=== PATIENT | female | born 1955 ===

== ENCOUNTER 2024-12-29 09:27 | Outpatient (CLI) | payer OTHER, SELFPAY ==
--- OUTSIDE RECORDS SUMMARY | 2024-12-29 09:33 | XMS_ITS | Encounter Summary ---
Author Organization [facility] Address [address] [place] [address] Phone Care Team Providers Care Poultry Packer Name Role Phone Lena Negro Primary Care Provider Encounter Details Date Type Department Care Team (Late st Contact Info) Description 01/23/2020 Telephone [facility] [address] [address] Stevenson Hollins MD [address] [address] Social History Tobacco Use Types Packs/Day Years Used Date Smoking Tobacco: Never Smokeless Tobacco: Never Alcohol Use Standard Drinks/Week Comments Never 0 (1 standard drink = 0.6 oz pur e alcohol) AUDIT-C Answer Date Recorded Q1: How often do you have a drink containing alc ohol? Never 01/19/2020 Average Number of Drinks Not on file 020 Frequency of Binge Drinking Not on file 12/26 PHQ-2 Answer Date Recorded PHQ-2 Score 0 01/19/2020 Comments Unknown Sex and Gender Information Value Date Recorded Sex Assigned at Not on file Legal Sex Female 8:22 AM CDT Gender Identity Not on file Sexual Orientation Not on file COVID-19 Exposure Response Date Recorded In the last month, have you been in contact with someone who was confirmed or suspected to have Coronavirus / COVID-19? No / Unsure 01/19/2020 10:31 AM CDT documented as of this encounter Miscellaneous Notes * Telephone Encounter - Anyi Shaver - 01/23/2020 1:24 PM CDT TRIED CALLING PT TO RESSCHEDULE 02/08 APPT NO ANSWER AND NO VM SET UP. WILL TRY AGAIN LATER. documented in this encounter Plan of Treatment Not on file documented as of this encounter Visit Diagnoses Not on filedocumented in this encounter Additional Health Concerns Assessment Noted Time PHQ-9 Depression Total Score: 0 01/19/20 10:48 AM CDT documented as of this encounter Care Teams Poultry Packer Relationship Specialty Start Date End Date Lena Negro PA [address] [facility] [address] PCP - General Physician Banquet Line Cook 01/11/20 documented as of this encounter
--- OUTSIDE RECORDS SUMMARY | 2024-12-29 09:33 | XMS_ITS | Encounter Summary ---
Author Organization [facility] Address [address] [place] [address] Phone Care Team Providers Care Sintering Press Operator Name Role Phone Lena Negro Primary Care Provider [phone] Encounter Details Date Type Department Care Team (Late st Contact Info) Description 05/09/2020 Telephone [facility] [address] [phone] Stevenson Hollins MD [address] [address] Social History Tobacco Use Types [...] on file 12/26 PHQ-2 Answer Date Recorded Total Score - Questions 1-9 0 03/26 Comments No Sex and Gender Information Value Date Recorded Sex Assigned at Not on file Legal Sex Female 8:22 AM CDT Gender Identity Not on file Sexual Orientation Not on file COVID-19 Exposure Response Date Recorded In the last month, have you been in contact with someone who was confirmed or suspected to have Coronavirus / COVID-19? No / Unsure 04/12/2020 10:01 AM SCUBA DIVER documented as of this encounter Miscellaneous Notes * Telephone Encounter - Wanda Taylor - 05/09/2020 4:01 PM CST PATIENT WAS A NO SHOW FOR 05/09/2020, CALLED PATIENT TWICE TO SEE IF WANTED TO RESCHEDULE, LINE WAS BUSY, WILL MAIL LETTER. A DIVER documented in this encounter Plan of Treatment Not on file documented as of this encounter Visit Diagnoses Not on filedocumented in this encounter Additional Health Concerns Assessment Noted Time PHQ-9 Depression Total Score: 0 04/12/20 10:09 AM SCUBA DIVER documented as of this encounter Care Teams Sintering Press Operator Relationship Specialty Start Date End Date Lena Negro PA [address] [facility] [address] PCP - General Physician Special Events Manager 01/11/20 documented as of this encounter
--- OUTSIDE RECORDS SUMMARY | 2024-12-29 09:33 | XMS_ITS | Clinical Summary ---
Author Organization [facility] Address [address], [facility] [address] [place] [address] Phone Care Team Providers Care Chair Installer Name Role Phone Lena Negro Primary Care Provider [phone] Allergies No known active allergies Medications Aspirin Low Dose 81 MG Tablet Delayed Response TK 1 T PO QD 01/11/2020 Active atorvastatin (LIPITOR) 80 MG Tablet 05/01/2019 Active ferrous sulfate 325 (65 Fe) MG Tablet Take 325 mg by mouth. Active furosemide (LASIX) 40 MG Tablet 05/01/2019 Active hydrALAZINE HCl 100 MG Tablet TK 1 T PO TID UTD 03/31/2019 Active isosorbide mononitrate (IMDUR) 30 MG TABLET SR 24 HR TK 1 T PO QD 04/16/2019 Active lisinopril (PRINIVIL, ZESTRIL) 40 MG Tablet 05/02/2019 Active MAGnesium-Oxide 400 (241.3 Mg) MG Tablet TK 1 T PO QD 12/18/2019 Active metOLazone (ZAROXOLYN) 2.5 MG Tablet Take 2.5 mg by mouth. 02/28/2019 Active phenytoin (DILANTIN) 100 MG ER capsule TK 2 CS PO BID 03/31/2019 Active tolterodine (DETROL LA) 4 MG CAPSULE SR 24 HR TK 1 C PO QD 04/21/2019 Active folic acid (FOLVITE) 1 MG Tablet Take 1 Tab by mouth daily. 30 Tab 6 02/16/2020 Active potassium chloride SA (KLORCON M) 20 MEQ Tablet Controlled Release TK 1 T PO QD 03/06/2020 Active metoprolol succinate (TOPROL-XL) 200 MG TABLET SR 24 HR TK 1 T PO QD 03/07/2020 Active ergocalciferol (VITAMIN D) 51564 UNIT Capsule Take 50,000 Units by mouth. Active Active Problems Problem Noted Date Diagnosed Date Anemia of unknown etiology 01/19/2020 Social History Tobacco Use Types Packs/Day Years [...] on file Sexual Orientation Not on file Last Filed Vital Signs Vital Sign Reading Time Taken Comments Blood Pressure 144/88 04/12/2020 10:05 AM EVENT SPECIALIST Pulse 68 04/12/2020 10:05 AM EVENT SPECIALIST Temperature 36.1 C (97 F) 04/12/2020 10:05 AM EVENT SPECIALIST Respiratory Rate 16 04/12/2020 10:05 AM EVENT SPECIALIST Oxygen Saturation 99% 04/12/2020 10:05 AM EVENT SPECIALIST Inhaled Oxygen Concentration - - Weight 73.5 kg (162 lb) 04/12/2020 10:05 AM EVENT SPECIALIST Height 149.9 cm (4' 11) 04/12/2020 10:05 AM EVENT SPECIALIST Body Mass Index 32.72 04/12/2020 10:05 AM EVENT SPECIALIST Plan of Treatment Health Maintenance Due Date Last Done Comments Hepatitis C Virus (HCV) Screening 1955 TdaP Immunization 1955 Cologuard 09/24/2000 Colonoscopy 09/24/2000 Colorectal Cancer Screening 09/24/2000 Immunochemical Fecal Occult Blood 09/24/2000 Pneumococcal Immunization (5 0+ years) (1 of 1 - PCV) 09/24/2005 Zoster Immunization (1 of 2) 09/24/2005 Influenza Immunization (#1) 2024 SARS-COV-2 Immunization (1 - 2023-25 season) 2024 Respiratory Syncytial Virus (RSV) Immunization (Adult) (1 - 1-dose 75+ series) 09/24/2030 Hepatitis B Immunization Aged Out No longer eligible based on patient's age to complete this topic Human Papillomavirus (HPV) Immunization Aged Out No longer eligible b ased on patient's age to complete this topic Meningococcal Immunization (ACWY) Aged Out No longer eligible based on patient's age to complete this topic Rotavirus Immunization Aged Out No lo nger eligible based on patient's age to complete this topic Insurance MEDICAID [employer] Care Teams Chair Installer Relationship Specialty Start Date End Date Lena Negro PA [address] [place] [address] PCP - General Physician Cash Posting Clerk 01/11/20
--- OUTSIDE RECORDS SUMMARY | 2024-12-29 09:33 | XMS_ITS | Encounter Summary ---
Author Organization [facility] Address [address] [place] [address] Phone Care Team Providers Care Bid Analyst Name Role Phone Lena Negro Primary Care Provider [phone] Reason for Visit * Reason Comments Medication Refill Encounter Details Date Type Department Care Team (Late st Contact Info) Description 02/05/2020 Refill [facility] [address] [phone] Stevenson Hollins MD [address] [facility] [place] [address] [address] Medication Refill Social History Tobacco Use Types Packs/Day Years [...] encounter Miscellaneous Notes * Telephone Encounter - Renée Lewis RN - 02/05/2020 3:11 PM CDT Please refill if appropriate. documented in this encounter Plan of Treatment Not on file documented as of this encounter Visit Diagnoses Not on filedocumented in this encounter Additional Health Concerns Assessment Noted Time PHQ-9 Depression Total Score: 0 01/19/20 20 10:48 AM CDT documented as of this encounter Care Teams Bid Analyst Relationship Specialty Start Date End Date Lena Negro PA [address] [employer] [facility] [employer] [place] [address] PCP - General Physician Retrieval Specialist 01/11/20 documented as of this encounter
--- OUTSIDE RECORDS SUMMARY | 2024-12-29 09:33 | XMS_ITS | Encounter Summary ---
Author Organization [facility] Address [address] [place] [address] Phone Care Team Providers Care Salary And Wage Administrator Name Role Phone Lena Negro Primary Care Provider [phone] Encounter Details Date Type Department Care Team (Late st Contact Info) Description 02/15/2020 Telephone [facility] [address] [phone] Stevenson Hollins MD [address] [address] Social History Tobacco Use Types [...] have Coronavirus / COVID-19? No / Unsure 02/16/2020 10:29 AM CDT documented as of this encounter Miscellaneous Notes * Telephone Encounter - Rica Angulo - 02/15/2020 11:17 AM CDT Patient no showed her appointment. I called and spoke with Ms. Walls, she thought her appointmentwas for tomorrow so I rescheduled her for tomorrow 02/15 you had an opening at 10:30. documented in this encounter Plan of Treatment Not on file documented as of this encounter Visit Diagnoses Not on filedocumented in this encounter Additional Health Concerns Assessment Noted Time PHQ-9 Depression Total Score: 0 01/19/20 10:48 AM CDT documented as of this encounter Care Teams Salary And Wage Administrator Relationship Specialty Start Date End Date Lena Negro PA [address] [facility] [address] [facility] [place] [address] PCP - General Physician [employer] 01/11/20 documented as of this encounter
--- OUTSIDE RECORDS SUMMARY | 2024-12-29 09:34 | XMS_ITS | Clinical Summary ---
Author Organization [facility] Address [address] [place] [id number] Care Team Providers Care Yarn Wrapper Name Role Phone Ernesto Awan MD Unavailable [phone] Olman MATT MD, Robert Barnes Unavailable [phone] Lena Negro Primary Care Provider [phone] Allergies Active Allergy Reactions Criticality Noted Date Comments Lisinopril Angioedema High 12/03/2024 Medications phenytoin ER (DILANTIN) 100 mg ER capsule Take 2 capsules (200 mg total) by mouth 2 (two) times a day 03/31/20 19 Active hydrALAZINE (APRESOLINE) 100 mg tablet Take 1 tablet (100 mg total) by mouth 3 (three) times a day 03/31/20 19 Active ergocalciferol (VITAMIN D) 50,000 unit capsule Take 1 capsule (50,000 Units total) by mouth once a week Mondays04/20/20 19 Active POTASSIUM CHLORIDE ER 20 mEq CR tablet Take 1 tablet (20 mEq total) by mouth daily 04/20/20 19 Active atorvastatin (LIPITOR) 80 mg tablet Take 1 tablet (80 mg total) by mouth daily 05/01/19 20 Active magnesium oxide (MAG-OX) 400 mg (241.3 mg elemental magnesium) tablet Take 1 tablet (400 mg total) by mouth daily 05/01/19 20 Active ferrous fumarate 325 mg (106 mg iron) tablet Take 2 tablets (650 mg total) by mouth daily with breakfast Active cetirizine (ZyrTEC) 10 mg tablet Take 1 tablet (10 mg total) by mouth daily as needed for rhinitis or allergies Active Farxiga 10 mg tablet Take 1 tablet (10 mg total) by mouth daily Active docusate sodium (COLACE) 100 mg capsule Take 1 capsule (100 mg total) by mouth 3 (three) times a day as needed for constipation Active ezetimibe (ZETIA) 10 mg tablet Take 1 tablet (10 mg total) by mouth daily Active terazosin (HYTRIN) 5 mg capsule Take 1 capsule (5 mg total) by mouth daily 04/13/20 24 Active furosemide (LASIX) 40 mg tablet Take 1 tablet (40 mg total) by mouth 2 (two) times a day 60 tablet 05/31/[address] (PROTONIX) 40 mg EC tabletIndicati ons:GI Bleed Take 1 tablet (40 mg total) by mouth 2 (two) times a day 60 tablet 4 10/04/19 25 Active sucralfate (CARAFATE) suspension 1 gram/10 mL Take 10 mL (1 g total) by mouth 4 (four) times a day (with meals and nightly) 1200 mL 2 10/04/19 25 Active aspirin 81 mg enteric coated tablet Take 1 tablet (81 mg total) by mouth daily 10/08/19 25 Active oxyBUTYnin (DITROPAN) 5 mg tablet Take 1 tablet (5 mg total) by mouth 2 (two) times a day Active carvediloL (COREG) 3.125 mg tablet Take 1 tablet (3.125 mg total) by mouth 2 (two) times a day with meals 60 tablet 12/07/19 25 2024 Active isosorbide mononitrate ER (IMDUR) 60 mg 24 hr tablet Take 2 tablets (120 mg total) by mouth daily 60 tablet 12/07/19 25 Active tolterodine LA (DETROL LA) 4 mg 24 hr capsule TK 1 C PO QD 04/21/20 19 2024 Discontinued polysaccharide iron complex (NU-IRON) 150 mg iron capsule Take 1 capsule (150 mg total) by mouth 2 (two) times a day 05/23/19 25 2024 Discontinued NIFEdipine CC 90 mg 24 hr tablet Take 1 tablet (90 mg total) by mouth daily 2024 Discontinued(S top Taking at Discharge) isosorbide mononitrate ER (IMDUR) 60 mg 24 hr tablet Take 1 tablet (60 mg total) by mouth daily 03/29/20 24 2024 Discontinued metOLazone (ZAROXOLYN) 2.5 mg tablet Take 1 tablet (2.5 mg total) by mouth 3 (three) times a week 30 tablet 1 05/31/19 25 2024 Discontinued carvediloL (COREG) 6.25 mg tablet Take 1 tablet (6.25 mg total) by mouth 2 (two) times a day with meals 60 tablet 11 05/31/19 25 2024 Discontinued(S top Taking at Discharge) sacubitriL-edmond sartan (ENTRESTO) 24-26 mg tabletIndicati ons:chronic heart failure Take 1 tablet by mouth 2 (two) times a day 60 tablet 3 05/31/19 25 2024 Discontinued(S top Taking at Discharge) mirabegron ER (MYRBETRIQ) 25 mg tablet extended release 24 hr Take 1 tablet (25 mg total) by mouth 2024 Discontinued Active Problems Problem Noted Date Diagnosed Date Acute renal failure superimp osed on stage 4 chronic kidney disease 12/04/2024 Other cirrhosis of liver 12/04/2024 Chronic heart failure with p reserved ejection fraction (HFpEF) 12/04/2024 Coronary artery disease invo lving [place] coronary artery of [place] heart without angina pectoris 12/04/2024 Acute on chronic congestive heart failure, unspecified heart failure type 12/03/2024 Gastritis 12/03/2024 Anasarca 12/03/2024 Ascites 12/03/2024 Pulmonary nodule, right 12/03/2024 Abnormal finding on GI tract imaging 10/03/2024 Assessment & Plan (11/30/2024 4:38 PM CDT): CT scan was completed on 10/02/2024 that showed subtle hepatic surface nodularity. Ultrasound was then completed that showed liver may be slightly enlarged. No definite surface nodularity was seen. Most recent liver enzymes showed ALT 20, AST 18, alk phos 158. -Educated on importance of healthy diet and lifestyle, low-fat diet -Discussed possible FibroScan, Black stool 10/03/2024 Generalized abdominal pain 10/02/2024 Acute on chronic combined sy stolic and diastolic congestive heart failure 05/30/2024 Stage 4 chronic kidney disease 05/30/2024 Congestive heart failure, un specified HF chronicity, unspecified heart failure type 05/28/2024 Proteinuria, unspecified 04/02/2023 Other proteinuria 03/31/2023 Seizure disorder 08/31/2022 08/31/2022 Pulmonary hypertension 08/31/2022 Obesity 08/31/2022 08/31/2022 Left ventricular hypertrophy 08/31/202211/2022 Hyperlipidemia 08/31/2022 08/31/2022 Edema of lower extremity 08/31/2022 023 Atrial fibrillation 08/31/2022 08/31/2022 Allergic rhinitis 08/31/2022 08/31/2022 Type 2 diabetes mellitus 06/20/2022 023 Proteinuria 06/20/2022 08/31/2022 Acute on chronic anemia 01/19/2020 09/01/19 23 Assessment & Plan (11/30/2024 4:38 PM CDT): Presented to the ED on 10/02/2024 with complaints of abdominal pain as well as melena. Hemoglobin was noted 6.9. She received one units of packed red blood cells and hemoglobin increased to 8.6. An EGD that was performed on 10/[address] Avina that showed normal esophagus, gastritis, normal duodenum. She was then started on 40 mg pantoprazole b.i.d. as well as Carafate. She currently has no complaints of abdominal pain. She states that she currently follows with Dr. Fitzpatrick and has an appointment scheduled with him next week. Repeat blood work was ordered by primary care physician which she has not had completed at this time. -States that she would like to follow up with her current GI provider for additional workup -Discussed possible capsule study for further investigation Vitamin D deficiency 06/06/2019 08/31/2022 Iron deficiency anemia 04/24/2019 Swelling 02/04/2018 08/31/2022 Pain in both lower extremities 02/04/2018 0 08/31/2022 Gout 02/04/2018 08/31/2022 Dyspnea on exertion 02/04/2018 08/31/2022 Chest pain 02/04/2018 08/31/2022 Primary hypertension 12/17/2016 08/31/2022 Coronary arteriosclerosis 01/24/20072022 Resolved Problems Problem Noted Date Diagnosed Date Resolved Date Dark stools 10/03/2024 11/30/2024 Encounters Date Type Department Care Team Description 12/28/19 25 [facility] Subsequent Outreach [facility] [address] [place] [phone] Roseanna Toney 12/21/19 25 [facility] Subsequent Outreach [facility] [address] [place] [phone] Mau Chavez, RN 12/15/19 25 T[facility] Subsequent Outreach [facility] [address] [place] [phone] Linda Graves, [facility] 12/09/19 25 Home Care Visit [facility] [address] [place] [address] [address] [place] [address] Kathy Peters, PT PT NON ADMIT 12/08/19 25 TCC Initial Outreach [facility] [address] [place] [phone] Janice Santoro, [facility] 12/08/19 25 Telephone [facility] [address] [place] [phone] Albert Carmona, LUCRECIA 12/05/19 25 TCC Initial Eligibility Review [facility] [address] [place] [phone] Mau Chavez, RN 12/04/19 25 1:54 PM CDT - 12/07/19 25 5:30 PM CDT Hospital Encounter [address] [address] Milo Trujillo MD Chapagain, Akhil, MD Chiravuri, Shalini, MD Fasick, Victoria Rose, DO Acute on chronic congestive heart failure, unspecified heart failure type (HCC) (Primary Dx); T wave inversion in EKG; Anasarca; Acute renal failure superimposed on stage 4 chronic kidney disease, unspecified acute renal failure type (HCC); Other cirrhosis of liver; Chronic heart failure with preserved ejection fraction (HFpEF); Coronary artery disease involving [place] coronary artery of [place] heart without angina pectoris; Physical debility Discharge Disposition: Discharge to home, home health skilled care 11/30/19 10:10 AM CDT Lab [facility] [address] [place] [phone] 11/30/19 9:55 AM CDT Lab [facility] [address] [place] [phone] 11/30/19 9:40 AM CDT Lab [facility] [address] [place] [phone] 11/30/19 9:00 AM CDT Office Visit [facility] Gastroenterology at [address] [phone] Selene Toney NP Anemia of unknown etiology (Primary Dx); Abnormal finding on GI tract imaging 10/04/19 1:30 PM CDT - 10/04/19 2:00 PM CDT Surgery [facility] [address] [place] [phone] Nas Avina MD ESOPHAGOGASTRODUODENOSCOPY 10/04/19 1:02 PM CDT Anesthesia Event [facility] [address] [place] [phone] Mian Vasquez MD 10/03/19 3:44 PM CDT - 10/04/19 6:07 PM CDT Hospital Encounter [facility] [address] [place] [phone] Víctor Jamison MD Paruchuri, Tharun, MD Potluri, Sobhana Krishna, MD Abdominal pain (Primary Dx); Normocytic anemia; Stage 4 chronic kidney disease (HCC); Black stool; Abnormal finding on GI tract imaging; Dark stools Discharge Disposition: Discharge to home or self care from Last 3 Months Surgical History Surgery Date Site/Laterality Comments HYSTERECTOMY COLONOSCOPY 04/26/1997 - 04/25/1998 Medical History Medical History Date Comments Hypertension Arthritis Heart failure Seizure disorder (HCC) Gastritis Hypercholesterolemia Overactive bladder Family History Relation Name Status Comments Daughter 1 Daughter 2 Alive Daughter 3 Alive Social History Tobacco Use Types Packs/Day Years Used Date Smoking Tobacco: Never Smokeless Tobacco: Never Alcohol Use Standard Drinks/Week Comments Not Currently 0 (1 standard drink = 0.6 oz pur e alcohol) Social Connection and Isolation Panel Answer Date Recorded In a typical week, how many times do you talk on the phone with family, friends, or neighbors? Three times a week 10/03/2024 How often do you get togethe r with friends or relatives? Three times a week 10/03/2024 How often do you attend chur ch or roman catholic services? More than 4 times per year 10/03/2024 Do you belong to any clubs o r organizations such as hoahaoism groups, unions, fraternal or athletic groups, or school groups? No 10/03/2024 How often do you attend meet ings of the clubs or organizations you belong to? Never 10/03/2024 Are you , , di vorced, , never , or living with a partner? 10/03/2024 AUDIT-C Answer Date Recorded Q1: How often do you have a drink containing alcohol? Never 10/03/2024 Q2: How many drinks containi ng alcohol do you have on a typical day when you are drinking? Patient does not drink Q3: How often do you have si x or more drinks on one occasion? Never 10/03/2024 Overall Financial Resource Strain (CARDIA) Answe r Date Recorded How hard is it for you to pa y for the very basics like food, housing, medical care, and heating? Not very hard 10/03/2024 PRAPARE - Transportation Answer Date Re corded In the past 12 months, has l ack of transportation kept you from medical appointments or from getting medications? No 09/24 In the past 12 months, has l ack of transportation kept you from meetings, work, or from getting things needed for daily living? No 10/03/2024 Housing Stability Vital Sign Answer Hunter e Recorded In the last 12 months, was t here a time when you were not able to pay the mortgage or rent on time? No 10/03/2024 In the past 12 months, how m any times have you moved where you were living? 0 10/03/2024 At any time in the past 12 m [facility], were you homeless or living in a senior living (including now)? No 10/03/2024 Social Connection and Isolation Panel Answer Date Recorded In a typical week, how many times do you talk on the phone with family, friends, or neighbors? Three times a week 12/04/2024 How often do you get togethe r with friends or relatives? Three times a week 12/04/2024 How often do you attend chur ch or roman catholic services? More than 4 times per year 12/04/2024 Do you belong to any clubs o r organizations such as hoahaoism groups, unions, fraternal or athletic groups, or school groups? No 12/04/2024 How often do you attend meet ings of the clubs or organizations you belong to? Never 12/04/2024 Are you , , di vorced, , never , or living with a partner? 12/04/2024 Overall Financial Resource Strain (CARDIA) Answe r Date Recorded How hard is it for you to pa y for the very basics like food, housing, medical care, and heating? Somewhat hard 12/04/2024 Hunger Vital Sign Answer Date Recorded Within the past 12 months, y ou worried that your food would run out before you got the money to buy more. Never true 12/05/19 25 Within the past 12 months, t he food you bought just didn't last and you didn't have money to get more. Never true 12/04/2024 PRAPARE - Transportation Answer Date Re corded In the past 12 months, has l ack of transportation kept you from medical appointments or from getting medications? No 11/24 In the past 12 months, has l ack of transportation kept you from meetings, work, or from getting things needed for daily living? No 12/04/2024 Housing Stability Vital Sign Answer Hunter e Recorded In the last 12 months, was t here a time when you were not able to pay the mortgage or rent on time? No 12/04/2024 In the past 12 months, how m any times have you moved where you were living? 0 12/04/2024 At any time in the past 12 m [facility], were you homeless or living in a senior living (including now)? No 12/04/2024 [facility] Utilities Answer Date Recorded In the past 12 months has [employer], gas, oil, or water [employer] threatened to shut off services in your home? No 12/04/2024 Personal Safety Answer Date Recorded Have you ever been in or are you currently in a harmful physical or emotional relationship or is someone making you feel afraid or unsafe? 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 Gender Identity Not on file Sexual Orientation Not on file Obstetrics History Para Term AB IAB SAB Ectopic Multiple Livin g Live Births 4 3 3 Date Outcome GA Total Labor Labor/2nd/3rd Weight Sex Type Anes PTL Marily A1 A5 Name Clin Term Term Term Last Filed Vital Signs Vital Sign Reading Time Taken Comments Blood Pressure 187/65 12/06/2024 3:57 PM CDT Pulse 51 12/06/2024 3:57 PM CDT Temperature 36.6 C (97.9 F) 12/06/2024 3:57 PM CDT Respiratory Rate 18 12/06/2024 3:57 PM CDT Oxygen Saturation 100% 12/06/2024 3:55 PM CDT Inhaled Oxygen Concentration - - Weight 66.8 kg (147 lb 4.8 oz) 12/06/2024 6:00 A M CDT Height 154.9 cm (5' 1) 12/03/2024 7:44 PM CDT Body Mass Index 27.83 12/03/2024 7:44 PM CDT Plan of Treatment Health Maintenance Due Date Last Done Comments Albumin Creatinine Ratio, Urine 1955 Colon Cancer Screening-Colonoscopy 1955 Depression Screening 1955 Hepatitis C Screening 1955 Osteoporosis Screening-Bone Density Scan 1955 Dilated Eye Exam 1955 Foot Exam 1955 DTaP/Tdap/Td Vaccine (1 - Tdap) 09/24/1966 Hepatitis B Screening 09/24/1973 Pneumococcal vaccine 65+ (1 of 2 - PCV) 09/24/1974 Zoster Vaccine (1 of 2) 09/24/2005 Well Visit 65+ 09/24/2020 Breast Cancer Screening-Mammogram 09/02/2024 024, 06/16/2022 Influenza Vaccine (#1) 2024 Lipid Panel 03/29/2025 03/29/2024, 060 12/2022, 09/08/2022, Additional history exists Hemoglobin A1C 06/01/2025 11/29/2024, 07/2023, 10/05/2023, Additional history exists Fall Risk Assessment 12/06/2025 12/06/2024 eGFR 12/06/2025 12/06/2024, 11/24, 12/04/2024, Additional history exists Procedures Procedure Name Priority Date/Time Associated Diagnosis Comments EGFR Routine 12/06/2024 2:41 AM CDT DIFFERENTIAL AUTO Routine 12/06/2024 2:41 AM CDT MAGNESIUM Routine 12/06/2024 2:41 AM CDT CBC WITH AUTO DIFFERENTIAL Routine 12/06 2:41 AM CDT COMPREHENSIVE METABOLIC PANEL Routine 2:41 AM CDT POCT GLUCOSE DEVICE Routine 12/05/2024 8:21 PM CDT POCT GLUCOSE DEVICE Routine 12/05/2024 11:32 AM CDT POCT GLUCOSE DEVICE Routine 12/05/2024 7:52 AM CDT EGFR Routine 12/05/2024 2:24 AM CDT DIFFERENTIAL AUTO Routine 12/05/2024 2:24 AM CDT CBC WITH AUTO DIFFERENTIAL Routine 12/05 2:24 AM CDT COMPREHENSIVE METABOLIC PANEL Routine 2:24 AM CDT URINALYSIS, MICROSCOPIC ONLY Routine 02/2025 10:17 PM CDT PROTEIN / CREATININE RATIO, URINE, RANDOM Routine 12/04/2024 10:17 PM CDT URINALYSIS AND REFLEX TO MICROSCOPIC Routine 12/04/2024 10:17 PM CDT IMMUNOGLOBULIN FREE LIGHT CHAINS Routine 12/04/2024 9:02 PM CDT IMMUNOTYPING Routine 12/04/2024 9:02 PM CDT POCT GLUCOSE DEVICE Routine 12/04/2024 7:51 PM CDT POCT GLUCOSE DEVICE Routine 12/04/2024 4:16 PM CDT TRANSTHORACIC ECHO (TTE) COMPLETE W DOPPLER/CF WO CONTRAST Routine 12/04/2024 3:24 PM CDT POCT GLUCOSE DEVICE Routine 12/04/2024 11:11 AM CDT POCT GLUCOSE DEVICE Routine 12/04/2024 7:11 AM CDT TRANSFUSE RED BLOOD CELLS Timed 2024 5:06 AM CDT PREPARE RBC Timed 12/04/2024 4:08 AM CDT HEMOGLOBIN AND HEMATOCRIT STAT 2024 3:09 AM CDT PHENYTOIN LEVEL, TOTAL AND FREE Routine 12/04/2024 3:09 AM CDT EGFR Routine 12/04/2024 2:19 AM CDT DIFFERENTIAL AUTO Routine 12/04/2024 2:19 AM CDT CBC WITH AUTO DIFFERENTIAL Routine 12/04 2:19 AM CDT COMPREHENSIVE METABOLIC PANEL Routine 2:19 AM CDT CALCIUM, IONIZED Routine 12/04/2024 2:19 AM CDT CROSSMATCH Timed 12/03/2024 8:20 PM CDT ANTIBODY SCREEN Timed 12/03/2024 8:20 PM CDT ABO/RH Timed 12/03/2024 8:20 PM CDT TYPE AND SCREEN Timed 12/03/2024 8:20 PM CDT HEMOGLOBIN AND HEMATOCRIT Timed 2024 8:20 PM CDT VITAMIN D 25 HYDROXY Routine 12/03/2024 8:20 PM CDT PTH Routine 12/03/2024 8:20 PM CDT POCT GLUCOSE DEVICE Routine 12/03/2024 7:41 PM CDT PROTIME-INR STAT 12/03/2024 6:02 PM CDT APTT STAT 12/03/2024 6:02 PM CDT XR CHEST 1 VIEW ED 12/03/2024 3:33 PM CDT TROPONIN T HIGH-SENSITIVITY 2-HOUR Timed 12/03/2024 3:[address] ABDOMEN PELVIS WO CONTRAST ED 1:45 PM CDT ECG 12-LEAD STAT 12/03/2024 12:54 PM CDT URINALYSIS, MICROSCOPIC ONLY STAT 01/2025 12:50 PM CDT URINALYSIS AND REFLEX TO MICROSCOPIC AND CULTURE STAT 12/03/2024 12:50 PM CDT TROPONIN T HIGH-SENSITIVITY SERIES (BASELINE, 2HR, 4HR, 6HR) STAT 12/03/2024 12:42 PM CDT PRO B-TYPE NATRIURETIC PEPTIDE STAT 0 12/03/2024 12:42 PM CDT EGFR STAT 12/03/2024 12:42 PM CDT DIFFERENTIAL AUTO STAT 12/03/2024 12:42 PM CDT LIPASE STAT 12/03/2024 12:42 PM CDT COMPREHENSIVE METABOLIC PANEL STAT 12:42 PM CDT CBC WITH AUTO DIFFERENTIAL STAT 12/03 12:42 PM CDT EGFR Routine 11/29/2024 10:22 AM CDT DIFFERENTIAL AUTO Routine 11/29/2024 10:22 AM CDT CBC WITH AUTO DIFFERENTIAL Routine 11/29 10:22 AM CDT COMPREHENSIVE METABOLIC PANEL Routine 10:22 AM CDT EGFR Routine 11/29/2024 10:21 AM CDT TRANSFERRIN Routine 11/29/2024 10:21 AM CDT FERRITIN Routine 11/29/2024 10:21 AM CDT IRON PROFILE W/ IBC Routine 11/29/2024 10:21 AM CDT VITAMIN D 25 HYDROXY Routine 11/29/2024 10:21 AM CDT HEMOGLOBIN A1C Routine 11/29/2024 10:21 AM CDT RENAL FUNCTION PANEL Routine 11/29/2024 10:21 AM CDT URINALYSIS, MICROSCOPIC ONLY Routine 09/2024 10:18 AM CDT URINALYSIS AND REFLEX TO MICROSCOPIC Routine 11/29/2024 10:18 AM CDT PROTEIN / CREATININE RATIO, URINE, RANDOM Routine 11/29/2024 10:18 AM CDT ESOPHAGOGASTRODUODENOSCOPY 10/03 1:03 PM CDT Abdominal pain EGD 10/03/2024 12:54 PM CDT US RUQ IP Routine 10/03/2024 11:07 AM CDT EGFR Routine 10/03/2024 7:44 AM CDT DIFFERENTIAL AUTO Routine 10/03/2024 7:44 AM CDT MAGNESIUM Routine 10/03/2024 7:44 AM CDT COMPREHENSIVE METABOLIC PANEL Routine 7:44 AM CDT CBC WITH AUTO DIFFERENTIAL Routine 10/03 7:44 AM CDT TRANSFUSE RED BLOOD CELLS Timed 2024 9:10 PM CDT PREPARE RBC Timed 10/02/2024 8:03 PM CDT HEMOGLOBIN AND HEMATOCRIT STAT 2024 7:[address] ABDOMEN PELVIS WO CONTRAST ED 6:26 PM CDT SEPSIS LACTATE WITH REFLEX STAT 10/02 5:52 PM CDT VITAMIN B12 Timed 10/02/2024 3:11 PM CDT LACTATE DEHYDROGENASE Timed 10/02/2024 3:11 PM CDT IRON PROFILE W/ IBC Timed 10/02/2024 3:11 PM CDT TROPONIN T HIGH-SENSITIVITY 2-HOUR Timed 10/02/2024 3:11 PM CDT B ABO / RH CONFIRMATION TESTING STAT 10/02/2024 2:07 PM CDT URINALYSIS, MICROSCOPIC ONLY STAT 12/2024 1:27 PM CDT URINALYSIS AND REFLEX TO MICROSCOPIC AND CULTURE STAT 10/02/2024 1:27 PM CDT CROSSMATCH STAT 10/02/2024 1:21 PM CDT EGFR STAT 10/02/2024 1:21 PM CDT DIFFERENTIAL AUTO STAT 10/02/2024 1:21 PM CDT ANTIBODY SCREEN STAT 10/02/2024 1:21 PM CDT ABO/RH STAT 10/02/2024 1:21 PM CDT TYPE AND SCREEN STAT 10/02/2024 1:21 PM CDT TROPONIN T HIGH-SENSITIVITY SERIES (BASELINE, 2HR, 4HR, 6HR) STAT 10/02/2024 1:21 PM CDT LIPASE STAT 10/02/2024 1:21 PM CDT COMPREHENSIVE METABOLIC PANEL STAT 1:21 PM CDT CBC WITH AUTO DIFFERENTIAL STAT 10/02 1:21 PM CDT ECG 12-LEAD STAT 10/02/2024 1:15 PM CDT LIPID PANEL Routine 03/29/2024 12:08 PM 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 73 m2 Comment: Interpretive Data Reference Interval Normal >/= 90 mL/min/1.73m2 Mildly decreased* 60 - 89 mL/min/1.73m2 Mildly to moderately decreased 45 - 59 mL/min/1.73m2 Moderately to severely decreased 30 - 44 mL/min/1.73m2 Severely decreased 15 - 29 mL/min/1.73m2 Kidney Failure < 15 mL/min/1.73m2 *Relative to young adult level Estimated glomerular filtration rate is determined by the 2020 CKD-EPI equation recommended by the National Kid[employer] (A Unifying Approach to GFR Estimation: Recommendations of the NKF-ASK Task Force on Reassessing the Inclusion of Race in Diagnosing Kidney Disease, JASN 2020). The CKD-EPI equation should not be used for patients with unstable renal function and has not been validated in children and those over 70. Current interpretive data was last reviewed 2021. Blood 12/06/2024 2:41 AM CDT 12/06/2024 3:09 AM CDT us Radha [facility] LAB BLOOD ORDERABLES Final Re sult ITALIA HARRIS [address] [facility] [place] [address] * Differential, auto (12/06/2024 2:41 AM CDT) Neutrophil abs 2.83 1.50 - 6.50 K/cumm Imm gran abs 0.02 0.00 - 0.10 K/cumm [facility] Lymphocyte abs 0.84 0.80 - 3.30 K/cumm [facility] Monocyte abs 0.47 0.20 - 0.80 K/cumm [facility] Eosinophil abs 0.15 0.00 - 0.50 K/cumm [facility] Basophil abs 0.03 0.00 - 0.10 K/cumm [facility] Neutrophil pct 65.1 % [facility] Comment: Interpretive Data Percent cell count reference ranges are not reported, since discordance with absolute values may lead to misinterpretation of CBC data. Current Interpretive Data was last revised on 2017. Imm gran pct 0.5 % [facility] Comment: Interpretive Data Percent cell count reference ranges are not reported, since discordance with absolute values may lead to misinterpretation of CBC data. Current Interpretive Data was last revised on 2017. Lymphocyte pct 19.4 % [facility] Comment: Interpretive Data Percent cell count reference ranges are not reported, since discordance with absolute values may lead to misinterpretation of CBC data. Current Interpretive Data was last revised on 2017. Monocyte pct 10.8 % [facility] Comment: Interpretive Data Percent cell count reference ranges are not reported, since discordance with absolute values may lead to misinterpretation of CBC data. Current Interpretive Data was last revised on 2017. Eosinophil pct 3.5 % [facility] Comment: Interpretive Data Percent cell count reference ranges are not reported, since discordance with absolute values may lead to misinterpretation of CBC data. Current Interpretive Data was last revised on 2017. Basophil pct 0.7 % [facility] Comment: Interpretive Data Percent cell count reference ranges are not reported, since discordance with absolute values may lead to misinterpretation of CBC data. Current Interpretive Data was last revised on 2017. Blood 12/06/2024 2:41 AM CDT 12/06/2024 3:10 AM CDT us Radha VORA LAB BLOOD ORDERABLES Final Re sult [facility] [address] [facility] [place] [address] * (ABNORMAL) CBC with auto differential (12/06/2024 2:41 AM CDT) [facility] WBC 4.34 3.80 - 9.90 K/cumm Hgb 7.9(L) 11.9 - 15.5 g/dL [facility] Hct 23.5(L) 35.6 - 45.5 % [facility] Plt 190 150 - 400 K/cumm [facility] MPV 9.6 9.1 - 12.3 fL [facility] RBC 2.78(L) 3.90 - 5.20 M/cumm [facility] MCV 84.5 81.3 - 96.4 fL [facility] MCH 28.4 27.1 - 33.3 pg [facility] MCHC 33.6 32.3 - 35.7 g/dL [facility] RDW CV 14.6 11.1 - 14.9 % [facility] RDW SD 45.5 35.7 - 48.1 fL [facility] NRBC abs 0.00 0.00 - 0.01 K/cumm [facility] Blood 12/06/2024 2:41 AM CDT 12/06/2024 3:10 AM CDT Radha VORA LAB BLOOD ORDERABLES Final Re sult Performing Organization Address City/[facility]/ZIP Co de Phone Number [address] [place] [address] * Magnesium (12/06/2024 2:41 AM CDT) [facility] Magnesium 2.3 1.4 - 2.5 mg/dL Blood 12/06/2024 2:41 AM CDT 12/06/2024 3:09 AM CDT Catrina Melissa MD LAB BLOOD ORDERABLES Final Result Performing Organization Address City/[facility]/ZIP Co de Phone Number [address] [place] [address] * (ABNORMAL) Comprehensive metabolic panel (12/06/2024 2:41 AM CDT) [facility] Sodium 139 135 - 145 mmol/L Potassium, pl 4.4 3.3 - 4.9 mmol/L [facility] Chloride 106 97 - 110 mmol/L [facility] CO2 24 22 - 32 mmol/L [facility] Anion gap 9 2 - 15 mmol/L [facility] BUN 36(H) 6 - 25 mg/dL [facility] Creatinine 2.44(H) 0.60 - 1.10 mg/dL [facility] Glucose 94 70 - 199 mg/dL [facility] Comment: Interpretive Data Fasting glucose >/= 126 mg/dl is diagnostic for diabetes. Fasting is defined as no caloric intake for at least 8 hours. Fasting glucose between 100 mg/dl to 125 mg/dl is diagnostic of prediabetes. In a patient with classic symptoms of hyperglycemia or hyperglycemic crisis, a random glucose >/= 200 mg/dl is diagnostic for diabetes. In the absence of unequivocal hyperglycemia, results should be confirmed by repeat testing. The classification and Diagnosis of Diabetes Diabetes Care 2021; 46: S19-S40. Current interpretive data was last revised 2022. Calcium 8.1(L) 8.5 - 10.3 mg/dL [facility] Bilirubin, total 0.2 0.1 - 1.2 mg/dL [facility] Protein, pl 6.2(L) 6.5 - 8.5 g/dL [facility] Albumin 3.0(L) 3.5 - 5.0 g/dL [facility] Alk phos 148(H) 40 - 130 Units/L [facility] ALT 11 7 - 45 Units/L [facility] AST 14 10 - 45 Units/L [facility] Blood 12/06/2024 2:41 AM CDT 12/06/2024 3:09 AM CDT us Radha VORA LAB BLOOD ORDERABLES Final Re sult [facility] [address] [facility] [place] [address] * POCT glucose (12/05/2024 8:21 PM CDT) [facility] Glucose, POC 94 70 - 199 mg/dL Glucose comment 1 RN/MD Notified [facility] Blood 12/05/2024 8:21 PM CDT 12/05/2024 8:21 PM CDT Catrina Melissa MD LAB POCT ORDERABLES - DEVIC E Final Result Performing Organization Address [facility] Co de Phone Number [address] [place] [address] * POCT glucose (12/05/2024 11:32 AM CDT) Glucose, POC 113 70 - 199 mg/dL Glucose comment 1 RN/ Notified [facility] Blood 12/05/2024 11:3 2 AM CDT 12/05/2024 11:32 AM CDT Catrina Melissa MD LAB POCT ORDERABLES - DEVIC E Final Result Performing Organization Address [facility] Co de Phone Number [address] [place] [address] * POCT glucose (12/05/2024 7:52 AM CDT) Glucose, POC 91 70 - 199 mg/dL Glucose comment 1 RN/ Notified [facility] Blood 12/05/2024 7:52 AM CDT 12/05/2024 7:52 AM CDT Catrina Melissa MD LAB POCT ORDERABLES - DEVIC E Final Result Performing Organization Address City/[facility] Co de Phone Number [address] [place] [address] * (ABNORMAL) eGFR (12/05/2024 2:24 AM CDT) Pathologist [facility] eGFR 20(L) >=60 mL/min/1. 73 m2 Comment: Interpretive Data Reference Interval Normal >/= 90 mL/min/1.73m2 Mildly decreased* 60 - 89 mL/min/1.73m2 Mildly to moderately decreased 45 - 59 mL/min/1.73m2 Moderately to severely decreased 30 - 44 mL/min/1.73m2 Severely decreased 15 - 29 mL/min/1.73m2 Kidney Failure < 15 mL/min/1.73m2 *Relative to young adult level Estimated glomerular filtration rate is determined by the 2020 CKD-EPI equation recommended by the National Kid[employer] (A Unifying Approach to GFR Estimation: Recommendations of the NKF-ASK Task Force on Reassessing the Inclusion of Race in Diagnosing Kidney Disease, JASN 2020). The CKD-EPI equation should not be used for patients with unstable renal function and has not been validated in children and those over 70. Current interpretive data was last reviewed 2021. Blood 12/05/2024 2:24 AM CDT 12/05/2024 3:05 AM CDT us Radha VORA LAB BLOOD ORDERABLES Final Re sult [facility] [address] [facility] [place] [address] * (ABNORMAL) Differential, auto (12/05/2024 2:24 AM CDT) Neutrophil abs 3.48 1.50 - 6.50 K/cumm Imm gran abs 0.01 0.00 - 0.10 K/cumm [facility] Lymphocyte abs 0.74(L) 0.80 - 3.30 K/cumm [facility] Monocyte abs 0.42 0.20 - 0.80 K/cumm [facility] Eosinophil abs 0.15 0.00 - 0.50 K/cumm [facility] Basophil abs 0.02 0.00 - 0.10 K/cumm [facility] Neutrophil pct 72.2 % [facility] Comment: Interpretive Data Percent cell count reference ranges are not reported, since discordance with absolute values may lead to misinterpretation of CBC data. Current Interpretive Data was last revised on 2017. Imm gran pct 0.2 % [facility] Comment: Interpretive Data Percent cell count reference ranges are not reported, since discordance with absolute values may lead to misinterpretation of CBC data. Current Interpretive Data was last revised on 2017. Lymphocyte pct 15.4 % [facility] Comment: Interpretive Data Percent cell count reference ranges are not reported, since discordance with absolute values may lead to misinterpretation of CBC data. Current Interpretive Data was last revised on 2017. Monocyte pct 8.7 % [facility] Comment: Interpretive Data Percent cell count reference ranges are not reported, since discordance with absolute values may lead to misinterpretation of CBC data. Current Interpretive Data was last revised on 2017. Eosinophil pct 3.1 % [facility] Comment: Interpretive Data Percent cell count reference ranges are not reported, since discordance with absolute values may lead to misinterpretation of CBC data. Current Interpretive Data was last revised on 2017. Basophil pct 0.4 % [facility] Comment: Interpretive Data Percent cell count reference ranges are not reported, since discordance with absolute values may lead to misinterpretation of CBC data. Current Interpretive Data was last revised on 2017. Blood 12/05/2024 2:24 AM CDT 12/05/2024 3:10 AM CDT us Radha VORA LAB BLOOD ORDERABLES Final Re sult [facility] [address] [facility] Department [place] [address] * (ABNORMAL) CBC with auto differential (12/05/2024 2:24 AM CDT) WBC 4.82 3.80 - 9.90 K/cumm Hgb 8.0(L) 11.9 - 15.5 g/dL [facility] Hct 24.4(L) 35.6 - 45.5 % [facility] Plt 212 150 - 400 K/cumm [facility] MPV 9.7 9.1 - 12.3 fL [facility] RBC 2.87(L) 3.90 - 5.20 M/cumm [facility] MCV 85.0 81.3 - 96.4 fL [facility] MCH 27.9 27.1 - 33.3 pg [facility] MCHC 32.8 32.3 - 35.7 g/dL [facility] RDW CV 14.6 11.1 - 14.9 % [facility] RDW SD 45.1 35.7 - 48.1 fL [facility] NRBC abs 0.00 0.00 - 0.01 K/cumm [facility] Blood 12/05/2024 2:24 AM CDT 12/05/2024 3:10 AM CDT us Radha VORA LAB BLOOD ORDERABLES Final Re sult [facility] [address] [facility] [place] [address] * (ABNORMAL) Comprehensive metabolic panel (12/05/2024 2:24 AM CDT) Sodium 141 135 - 145 mmol/L Potassium, pl 4.4 3.3 - 4.9 mmol/L [facility] Chloride 107 97 - 110 mmol/L [facility] CO2 24 22 - 32 mmol/L [facility] Anion gap 10 2 - 15 mmol/L [facility] BUN 40(H) 6 - 25 mg/dL [facility] Creatinine 2.52(H) 0.60 - 1.10 mg/dL [facility] Glucose 92 70 - 199 mg/dL [facility] Comment: Interpretive Data Fasting glucose >/= 126 mg/dl is diagnostic for diabetes. Fasting is defined as no caloric intake for at least 8 hours. Fasting glucose between 100 mg/dl to 125 mg/dl is diagnostic of prediabetes. In a patient with classic symptoms of hyperglycemia or hyperglycemic crisis, a random glucose >/= 200 mg/dl is diagnostic for diabetes. In the absence of unequivocal hyperglycemia, results should be confirmed by repeat testing. The classification and Diagnosis of Diabetes Diabetes Care 202; 46: S19-S40. Current interpretive data was last revised 2022. Calcium 8.2(L) 8.5 - 10.3 mg/dL [facility] Bilirubin, total 0.2 0.1 - 1.2 mg/dL [facility] Protein, pl 6.4(L) 6.5 - 8.5 g/dL [facility] Albumin 3.3(L) 3.5 - 5.0 g/dL [facility] Alk phos 155(H) 40 - 130 Units/L [facility] ALT 13 7 - 45 Units/L [facility] AST 14 10 - 45 Units/L [facility] Blood 12/05/2024 2:24 AM CDT 12/05/2024 3:05 AM CDT Radha VORA LAB BLOOD ORDERABLES Final Re sult Performing Organization Address [facility] de Phone Number [facility] [address] [facility] [place] [address] * (ABNORMAL) Urinalysis reflex to microscopic (12/04/2024 10:17 PM CDT) Color, ur Straw Yellow Clarity, ur Clear Clear [facility] Specific gravity, ur 1.008 1.003 - 1.030 [facility] pH, urine 6.5 [facility] Comment: Interpretive Data U rine pH is affected by diet, medications, systemic acid-base disturbances, and renal tubular function. pH may affect urinary stone formation. For example, urine pH below 6.0 may help reduce the tendency for calcium phosphate stones and pH greater than 6.0 may reduce the tendency for uric acid stone formation. Source: [facility] Current Interpretive Data was last revised on 2017 Protein, ur ql 1+(A) Negative [facility] Glucose, ur ql Negative Negative [facility] Ketones, ur Negative Negative [facility] Bilirubin, ur Negative Negative [facility] Blood, ur Negative Negative [facility] Urobilinogen, ur <2.0 <2.0 mg/dL [facility] Nitrite, ur Negative Negative [facility] Leukocyte esterase, ur Negative Negative [facility] UA reflex comment Reflex to microscopic UA will be performed. [facility] Urine 12/04/2024 10:1 7 PM CDT 12/04/2024 10:19 PM CDT us Marv Reaves MD LAB URINE ORDERABLE S Final Result Performing Organization Address [facility] Co de Phone Number [facility] [address] [facility] [place] [address] * (ABNORMAL) Protein / creatinine ratio, urine, random (12/04/2024 10:17 PM CDT) Pathologist [facility] Protein, ur, quant 104.0 mg/dL Comment: Interpretive Data No reference range established. Current interpretive data was last revised 2018. Creatinine Ur 27.2 mg/dL [facility] Comment: Interpretive Data No reference range established. Current interpretive data was last revised 2018. Protein/creatinin e ratio 3,823.5(H ) 0.0 - 180.0 mg/g CR [facility] Urine 12/04/2024 10:1 7 PM CDT 12/04/2024 10:19 PM CDT Marv Reaves MD LAB URINE ORDERABLE S Final Result Performing Organization Address City/[facility]/ZIP Co de Phone Number [place] [id number] [place] [address] * Urinalysis, microscopic only (12/04/2024 10:17 PM CDT) Pathologist [facility] WBC, ur 0-5 0 - 5 /HPF RBC, ur 0-2 0 - 2 /HPF [facility] Epithelial cells, squamous, ur 1-5 0 - 5 /HPF [facility] Urine 12/04/2024 10:1 7 PM CDT 12/04/2024 10:19 PM CDT Marv Reaves MD LAB URINE ORDERABLE S Final Result Performing Organization Address City/[facility]/ZIP Co de Phone Number [facility] [address] [place] [address] * Immunotyping, serum with interpretation (12/04/2024 9:02 PM CDT) Pathologist [facility] Immunosubtraction Please see comment Comment: NO PARAPROTEIN DETECTED Reviewed and signed by Demetrius Guzman MD, PhD 12/05/2024 Testing performed by: [facility], [address] [place]., [address] Blood 12/04/2024 9:02 PM CDT 12/05/2024 1:47 AM CDT Lorene HARRIS - 12/05/2024 3:06 PM CDT Indication:->AL amyloidosis screen us Marv Reaves MD LAB BLOOD ORDERABLE S Final Result [facility] [address] [facility] [place] [address] * (ABNORMAL) Immunoglobulin free light chains (12/04/2024 9:02 PM CDT) [place]/Lambda ratio [facility] 1.46 0.26 - 1.65 Comment: Interpretive Data The Binding Site FreeLite assay procedure was used. Results from different manufacturers or methods may not be comparable. Serial testing should be performed using the same methods and instrumentation. Current Interpretive Data was last revised on 2023. Testing performed by: [facility], [address] [place]., [address] [place] free light chain [facility] 14.42(H) 0.33 - 1.94 mg/dL [facility] Comment: Interpretive Data The Binding Site FreeLite assay procedure was used. Results from different manufacturers or methods may not be comparable. Serial testing should be performed using the same methods and instrumentation. Current Interpretive Data was last revised on 2023. Testing performed by: [facility], [address] [place]., [address] Lambda free light chain [facility] 9.87(H) 0.57 - 2.63 mg/dL [facility] Comment: Interpretive Data The Binding Site FreeLite assay procedure was used. Results from different manufacturers or methods may not be comparable. Serial testing should be performed using the same methods and instrumentation. Current Interpretive Data was last revised on 2023. Testing performed by: [facility], [address] [place]., [address] Blood 12/04/2024 9:02 PM CDT 12/05/2024 1:47 AM CDT Marv Reaves MD LAB BLOOD ORDERABLE S Final Result Performing Organization Address [facility] Co de Phone Number [address] [address] * POCT glucose (12/04/2024 7:51 PM CDT) [facility] Glucose, POC 120 70 - 199 mg/dL Glucose comment 1 RN/MD Notified [facility] Glucose comment 2 Follow Protocol [facility] Blood 12/04/2024 7:51 PM CDT 12/04/2024 7:51 PM CDT Nick Armendariz MD LAB POCT ORDERABLES - DEVICE Final Result Performing Organization Address [facility] de Phone Number [address] [place] [address] * POCT glucose (12/04/2024 4:16 PM CDT) [facility] Glucose, POC 106 70 - 199 mg/dL Glucose comment 1 RN/MD Notified [facility] Blood 12/04/2024 4:16 PM CDT 12/04/2024 4:16 PM CDT Nick Armendariz MD LAB POCT ORDERABLES - DEVICE Final Result Performing Organization Address [facility] Co de Phone Number [address] [address] * TRANSTHORACIC ECHO (TTE) COMPLETE W DOPPLER/CF WO CONTRAST (12/04/2024 3:24 PM CDT) [facility] Signature Estimated EF 55-60 % CONS SCIMAGE EF Mod BP 58 % CONS SCIMAGE Anatomical Region Laterality Modality Ultrasound 12/04/2024 2:33 PM CDT Narrative 12/04/2024 4:13 PM CDT Transthoracic Echocardiographic Report Patient Name: ERLINDA JEAN : 1955 (69y 2m) Gender: F Study Date: 12/04/2024 02:33:54 PM Ht(Inch): 61 Wt(Lb): 153.99 BSA: 1.73 Cadmium Burner: Layne Min RDCS Location: [id number] Order Provider: RADHA WHITNEY Heart Rate: 58 BMI: 29.09 BP: 148 / 58 Ref Provider: RADHA WHITNEY PROCEDURES: Echocardiographic Report: ([id number]) Transthoracic complete echo, 2D, spectral and tissue Doppler, color flow Doppler, M-mode. INDICATIONS: Heart Failure. FINDINGS: Left Ventricle: Normal left ventricular cavity size. Normal Left ventricular wall thickness. Normal left ventricular systolic function. The Ejection Fraction (Oscar's) is measured at 58 %. The Ejection Fraction is visually estimated to be 55-60 %. Diastolic Function Left ventricular diastolic parameters are consistent with Grade III diastolic dysfunction (elevated LA pressure, restrictive physiology). Regional Wall Motion: There is paradoxical motion of the interventricular septum. Right Ventricle: Right ventricular dilatation. Normal right ventricular systolic function. Left Atrium: Severely dilated left atrium. Right Atrium: Moderately dilated right atrium. Atrial Septum: The interatrial septum is normal in appearance. The atrial septum bows to the left, consistent with elevated central venous pressure. Mitral Valve: There is moderate mitral valve regurgitation. No mitral valve stenosis. The mitral valve area by pressure half-time is 2.9 cm2. The mean transmitral gradient is: 3 mmHg. While the mean calculated diastolic mitral valve pressure gradient is consistent with mild mitral stenosis, the valve is seen to open fully on grayscale ultrasound. Aortic Valve: Trileaflet aortic valve. No aortic regurgitation seen. No aortic valve stenosis. The mean transaortic gradient is 12 mmHg. The aortic valve area by the continuity equation (using VTI) is 1.35 cm2. The aortic valve area by the continuity equation (using Peak Rico) is 1.38 cm2. While the mean calculated transaortic systolic pressure gradient is consistent with mild aortic stenosis, the valve is seen to open fully on grayscale ultrasound. Tricuspid Valve: There is moderate to severe tricuspid regurgitation. The estimated right ventricular systolic pressure is 60 mmHg. Estimated pulmonary artery systolic pressure is consistent with moderate pulmonary hypertension (45-60mmHg). Pulmonic Valve: There is trace to mild pulmonic valve regurgitation. Pericardium: Normal pericardium without evidence of pericardial effusion. Aorta: Normal aortic root. IVC: IVC has blunted respirophasic collapse. IVC is dilated. The IVC (inferior vena cava) was >2.1 cm and collapsibility <50%. The estimated RA pressure is 15 mmHg. Incidental Findings: Evaluation for the possibility of infiltrative cardiomyopathy should be considered. CONCLUSIONS: 1. Normal left ventricular cavity size. Normal Left ventricular wall thickness. Normal left ventricular systolic function. The Ejection Fraction (Oscar's) is measured at 58 %. The Ejection Fraction is visually estimated to be 55-60 %. Diastolic Function Left ventricular diastolic parameters are consistent with Grade III diastolic dysfunction (elevated LA pressure, restrictive physiology). 2. The atrial septum bows to the left, consistent with elevated central venous pressure. 3. There is moderate mitral valve regurgitation. While the mean calculated diastolic mitral valve pressure gradient is consistent with mild mitral stenosis, the valve is seen to open fully on grayscale ultrasound. 4. While the mean calculated transaortic systolic pressure gradient is consistent with mild aortic stenosis, the valve is seen to open fully on grayscale ultrasound. 5. There is moderate to severe tricuspid regurgitation. Estimated pulmonary artery systolic pressure is consistent with moderate pulmonary hypertension (45- 60mmHg). 6. There is paradoxical motion of the interventricular septum. 7. Evaluation for the possibility of infiltrative cardiomyopathy should be considered. MEASUREMENTS: 2D/MM Value Range Doppler Value LVIDd 2D 5.10 cm [ 3.50 - 5.70 ] AV Peak Rico 2.36 m/s LVIDs 2D 4.07 cm [ 3.10 - 4.60 ] AV Peak PG 22.28 mmHg IVSd 2D 1.09 cm [ 0.60 - 1.20 ] AV Mean PG 12.00 mmHg LVPWd 2D 1.05 cm [ 0.60 - 1.10 ] AV VTI 59.90 cm LV Thickness Ratio 1.04 LVOT Peak Rico 1.15 m/s LV Mass 2D 210.23 g LVOT Peak PG 5.29 mmHg LV Mass Index 2D 121.52 g/m2 LVOT Mean PG 3.00 mmHg RWT 0.41 LVOT VTI 28.50 cm EDV Mod BP 92.40 ml [ 46.00 - 106.00 ] LVOT Diam 1.90 cm LV EDV Index 53.41 ml/m2 SV LVOT 81.00 cm3 ESV Mod BP 38.60 ml [ 14.00 - 42.00 ] MAITE VTI 1.35 cm2 EF Mod BP 58 % [ 54 - 74 ] MAITE Vmax 1.38 cm2 Visually Estimated EF 55-60 % LVOT/AV VTI 0.48 - Dimensionless index (DVI) LA Dimension 2D 5.10 cm [ 1.90 - 4.00 ] MV E Peak Rico 1.36 m/s LA Length 2C 7.39 cm MV A Peak Rico 0.51 m/s LA Length 4C 7.60 cm MV E/A 2.70 ratio LA Volume BP 156.00 ml MV Peak Rico 1.69 m/s LA Volume Index 90.17 ml/m2 [ 16.00 - 34.00 ] MV Peak PG 11.42 mmHg IVC Diam 2.92 cm MV Mean PG 3.00 mmHg AoR Diam 2D 2.70 cm [ 2.00 - 3.70 ] MV VTI 48.10 cm Ao Root Index 1.56 cm/m2 [ 1.00 - 2.00 ] MV PHT Peak Rico 1.76 m/s MV PHT 75.00 ms MVA PHT 2.93 cm2 MV Decel Time 198.00 msec Med E` Rico 0.07 m/s Lat E` Rico 0.11 m/s Average E/E` 1511.11 TV Peak Rico 0.82 m/s TV Peak PG 2.69 mmHg RV S` 8.59 cm/sec TR Peak Rico 3.37 m/s TR Peak PG 45.4 mmHg RA Pressure 15.00 mmHg RVSP 60.40 mmHg PV Peak Rico 1.44 m/s PV Peak PG 8.29 mmHg - ATTESTATION: I have reviewed and interpreted the pertinent images and measurements of this study. I attest to the conclusions in the final report that is provided above. DISCLAIMER: The study images and the final report will be retained in the patient chart by the [facility] for the legally required time period. This chart constitutes the legal record of any testing performed. Electronically Signed By: Merline Hook MD 12/04/2024 4:12:55 PM CDT Procedure Note Merline Hook MD - 12/04/2024 Transthoracic Echocardiographic Report Patient Name: ERLINDA JEAN : 1955 (69y 2m) Gender: F Study Date: 12/04/2024 02:33:54 PM Ht(Inch): 61 Wt(Lb): 153.99 BSA: 1.73 Cadmium Burner: Layne Min RDCS Location: [id number] Order Provider:RADHA WHITNEY Heart Rate: 58 BMI: 29.09 BP: 148 / 58 Ref Provider: RADHA WHITNEY PROCEDURES: Echocardiographic Report: ([id number]) Transthoracic complete echo, 2D,spectral and tissue Doppler, color flow Doppler, M-mode. INDICATIONS: Heart Failure. FINDINGS: Left Ventricle: Normal left ventricular cavity size. Normal Leftventricular wall thickness. Normal left ventricular systolic function. The EjectionFraction (Oscar's) is measured at 58 %. The Ejection Fraction is visually estimated to be55-60 %. Diastolic Function Left ventricular diastolic parameters are consistent with GradeIII diastolic dysfunction (elevated LA pressure, restrictive physiology). Regional Wall Motion: There is paradoxical motion of the interventricularseptum. Right Ventricle: Right ventricular dilatation. Normal right ventricularsystolic function. Left Atrium: Severely dilated left atrium. Right Atrium: Moderately dilated right atrium. Atrial Septum: The interatrial septum is normal in appearance. The atrialseptum bows to the left, consistent with elevated central venous pressure. Mitral Valve: There is moderate mitral valve regurgitation. No mitralvalve stenosis. The mitral valve area by pressure half-time is 2.9 cm2. The mean transmitralgradient is: 3 mmHg. While the mean calculated diastolic mitral valve pressure gradientis consistent with mild mitral stenosis, the valve is seen to open fully on grayscaleultrasound. Aortic Valve: Trileaflet aortic valve. No aortic regurgitation seen. Noaortic valve stenosis. The mean transaortic gradient is 12 mmHg. The aortic valve areaby the continuity equation (using VTI) is 1.35 cm2. The aortic valve area by thecontinuity equation (using Peak Rico) is 1.38 cm2. While the mean calculatedtransaortic systolic pressure gradient is consistent with mild aortic stenosis, the valve isseen to open fully on grayscale ultrasound. Tricuspid Valve: There is moderate to severe tricuspid regurgitation. Theestimated right ventricular systolic pressure is 60 mmHg. Estimated pulmonary arterysystolic pressure is consistent with moderate pulmonary hypertension (45-60mmHg). Pulmonic Valve: There is trace to mild pulmonic valve regurgitation. Pericardium: Normal pericardium without evidence of pericardialeffusion. Aorta: Normal aortic root. IVC: IVC has blunted respirophasic collapse. IVC is dilated. The IVC (inferior vena cava) was >2.1 cm andcollapsibility <50%. The estimated RA pressure is 15 mmHg. Incidental Findings: Evaluation for the possibility of infiltrativecardiomyopathy should be considered. CONCLUSIONS: 1. Normal left ventricular cavity size. Normal Left ventricular wallthickness. Normal left ventricular systolic function. The Ejection Fraction (Oscar's) ismeasured at 58 %. The Ejection Fraction is visually estimated to be 55-60 %. DiastolicFunction Left ventricular diastolic parameters are consistent with Grade III diastolicdysfunction (elevated LA pressure, restrictive physiology). 2. The atrial septum bows to the left, consistent with elevated centralvenous pressure. 3. There is moderate mitral valve regurgitation. While the mean calculateddiastolic mitral valve pressure gradient is consistent with mild mitral stenosis,the valve is seen to open fully on grayscale ultrasound. 4. While the mean calculated transaortic systolic pressure gradient isconsistent with mild aortic stenosis, the valve is seen to open fully on grayscaleultrasound. 5. There is moderate to severe tricuspid regurgitation. Estimatedpulmonary artery systolic pressure is consistent with moderate pulmonary hypertension(45-60mmHg). 6. There is paradoxical motion of the interventricular septum. 7. Evaluation for the possibility of infiltrative cardiomyopathy should beconsidered. MEASUREMENTS: 2D/MM Value Range DopplerValue LVIDd 2D 5.10 cm [ 3.50 - 5.70 ] AV Peak Vel2.36 m/s LVIDs 2D 4.07 cm [ 3.10 - 4.60 ] AV Peak PG22.28 mmHg IVSd 2D 1.09 cm [ 0.60 - 1.20 ] AV Mean PG12.00 mmHg LVPWd 2D 1.05 cm [ 0.60 - 1.10 ] AV VTI59.90 cm LV Thickness Ratio 1.04 LVOT PeakVel 1.15 m/s LV Mass 2D 210.23 g LVOT Peak PG5.29 mmHg LV Mass Index 2D 121.52 g/m2 LVOT Mean PG3.00 mmHg RWT 0.41 LVOT VTI28.50 cm EDV Mod BP 92.40 ml [ 46.00 - 106.00 ] LVOT Diam1.90 cm LV EDV Index 53.41 ml/m2 SV LVOT81.00 cm3 ESV Mod BP 38.60 ml [ 14.00 - 42.00 ] MAITE VTI1.35 cm2 EF Mod BP 58 % [ 54 - 74 ] MAITE Vmax1.38 cm2 Visually Estimated EF 55-60 % LVOT/AV VTI0.48 - Dimensionless index (DVI) LA Dimension 2D 5.10 cm [ 1.90 - 4.00 ] MV E PeakVel 1.36 m/s LA Length 2C 7.39 cm MV A PeakVel 0.51 m/s LA Length 4C 7.60 cm MV E/A2.70 ratio LA Volume BP 156.00 ml MV Peak Vel1.69 m/s LA Volume Index 90.17 ml/m2 [ 16.00 - 34.00 ] MV Peak PG11.42 mmHg IVC Diam 2.92 cm MV Mean PG3.00 mmHg AoR Diam 2D 2.70 cm [ 2.00 - 3.70 ] MV VTI48.10 cm Ao Root Index 1.56 cm/m2 [ 1.00 - 2.00 ] MV PHT PeakVel 1.76 m/s MV PHT 75.00 ms MVA PHT 2.93 cm2 MV Decel Time 198.00 msec Med E` Rico 0.07 m/s Lat E` Rico 0.11 m/s Average E/E` 1511.11 TV Peak Irco 0.82 m/s TV Peak PG 2.69 mmHg RV S` 8.59 cm/sec TR Peak Rico 3.37 m/s TR Peak PG 45.4 mmHg RA Pressure 15.00 mmHg RVSP 60.40 mmHg PV Peak Rico 1.44 m/s PV Peak PG 8.29 mmHg - ATTESTATION: I have reviewed and interpreted the pertinent images and measurements ofthis study. I attest to the conclusions in the final report that is provided above. DISCLAIMER: The study images and the final report will be retained in the patientchart by the [facility] for the legally required time period. This chart constitutesthe legal record of any testing performed. Electronically Signed By: Merline Hook MD 12/04/2024 4:12:55 PM CDT Radha VORA CV ECHO PROCEDURES Final Resu lt * POCT glucose (12/04/2024 11:11 AM CDT) Pathologist [facility] Glucose, POC 102 70 - 199 mg/dL Glucose comment 1 RN/MD Notified [facility] Blood 12/04/2024 11:1 1 AM CDT 12/04/2024 11:11 AM CDT Nick Armendariz MD LAB POCT ORDERABLES - DEVICE Final Result PETRARUSS [address] [place] [address] * Transfuse RBC (12/04/2024 9:06 AM CDT) Blood Adriane Yo NP BLOOD TRANSFUSION ORDERABLES Final Result PETRA[address] [place] [address] * POCT glucose (12/04/2024 7:11 AM CDT) Pathologist [facility] Glucose, POC 88 70 - 199 mg/dL Glucose comment 1 RN/MD Notified ITALIA Blood 12/04/2024 7:11 AM CDT 12/04/2024 7:11 AM CDT Nick Armendariz MD LAB POCT ORDERABLES - DEVICE Final Result Performing Organization Address [facility] Co de Phone Number PETRA[address] [place] [address] * Prepare RBC: 1 Units (12/04/2024 4:08 AM CDT) Units requested 1 Units requested Ready [facility] Unit Number [id number] Product code [id number] [facility] Blood Expiration Date [id number] [facility] Product Blood Type (for scanning) [address] [facility] [facility] Product Blood Type APOS [facility] Dispense Status DISPENSED [facility] Blood 12/04/2024 4:08 AM CDT 12/04/2024 4:08 AM CDT Adriane Yo NP BLOOD BANK PRODUCT ORDERABLE S Final Result Performing Organization Address City/[facility]/ZIP Co de Phone Number [address] [place] [address] * (ABNORMAL) Hemoglobin and hematocrit (12/04/2024 3:09 AM CDT) [facility] Hgb 6.5(L) 11.9 - 15.5 g/dL Hct 19.8(L) 35.6 - 45.5 % [facility] Blood 12/04/2024 3:09 AM CDT 12/04/2024 3:11 AM CDT us Adriane Yo NP LAB BLOOD ORDERABLES Final R esult Performing Organization Address [facility] Co de Phone Number [address] [place] [address] * (ABNORMAL) Phenytoin level, total and free (12/04/2024 3:09 AM CDT) [facility] Phenytoin, free 1.2 1.0 - 2.0 mcg/mL [place] [facility] Phenytoin 7.0(L) 10.0 - 20.0 mcg/mL [facility] Comment: Test Performed by: [place] [address] [employer] Supervisor: Tyshawn Link Ph.D.; CLIA# [id number] Blood 12/04/2024 3:0 9 AM CDT 12/04/2024 3:57 AM CDT us Milo Guerra MD LAB BLOOD ORDERABLES Final Result Performing Organization Address [facility] Co de Phone Number [address] [place] [address] [facility] [facility] * (ABNORMAL) eGFR (12/04/2024 2:19 AM CDT) [facility] eGFR 21(L) >=60 mL/min/1. 73 m2 Comment: Interpretive Data Reference Interval Normal >/= 90 mL/min/1.73m2 Mildly decreased* 60 - 89 mL/min/1.73m2 Mildly to moderately decreased 45 - 59 mL/min/1.73m2 Moderately to severely decreased 30 - 44 mL/min/1.73m2 Severely decreased 15 - 29 mL/min/1.73m2 Kidney Failure < 15 mL/min/1.73m2 *Relative to young adult level Estimated glomerular filtration rate is determined by the 2020 CKD-EPI equation recommended by the National Kidney Foundation (A Unifying Approach to GFR Estimation: Recommendations of the NKF-ASK Task Force on Reassessing the Inclusion of Race in Diagnosing Kidney Disease, JASN 202). The CKD-EPI equation should not be used for patients with unstable renal function and has not been validated in children and those over 70. Current interpretive data was last reviewed 2021. Blood 12/04/2024 2:19 AM CDT 12/04/2024 2:21 AM CDT us Radha VORA LAB BLOOD ORDERABLES Final Re sult [facility] [address] [facility] [place] [address] * Differential, auto (12/04/2024 2:19 AM CDT) Pathologist [facility] Neutrophil abs 1.99 1.50 - 6.50 K/cumm Imm gran abs 0.01 0.00 - 0.10 K/cumm [facility] Lymphocyte abs 1.02 0.80 - 3.30 K/cumm [facility] Monocyte abs 0.38 0.20 - 0.80 K/cumm [facility] Eosinophil abs 0.14 0.00 - 0.50 K/cumm [facility] Basophil abs 0.01 0.00 - 0.10 K/cumm [facility] Neutrophil pct 56.1 % [facility] Comment: Interpretive Data Percent cell count reference ranges are not reported, since discordance with absolute values may lead to misinterpretation of CBC data. Current Interpretive Data was last revised on 2017. Imm gran pct 0.3 % [facility] Comment: Interpretive Data Percent cell count reference ranges are not reported, since discordance with absolute values may lead to misinterpretation of CBC data. Current Interpretive Data was last revised on 2017. Lymphocyte pct 28.7 % [facility] Comment: Interpretive Data Percent cell count reference ranges are not reported, since discordance with absolute values may lead to misinterpretation of CBC data. Current Interpretive Data was last revised on 2017. Monocyte pct 10.7 % [facility] Comment: Interpretive Data Percent cell count reference ranges are not reported, since discordance with absolute values may lead to misinterpretation of CBC data. Current Interpretive Data was last revised on 2017. Eosinophil pct 3.9 % [facility] Comment: Interpretive Data Percent cell count reference ranges are not reported, since discordance with absolute values may lead to misinterpretation of CBC data. Current Interpretive Data was last revised on 2017. Basophil pct 0.3 % [facility] Comment: Interpretive Data Percent cell count reference ranges are not reported, since discordance with absolute values may lead to misinterpretation of CBC data. Current Interpretive Data was last revised on 2017. Blood 12/04/2024 2:19 AM CDT 12/04/2024 2:21 AM CDT Radha VORA LAB BLOOD ORDERABLES Final Re sult Performing Organization Address [facility] Co de Phone Number [address] [place] [address] * Calcium, ionized (12/04/2024 2:19 AM CDT) Pathologist [facility] Calcium, Ionized 4.73 4.50 - 5.10 mg/dL Blood 12/04/2024 2:19 AM CDT 12/04/2024 2:21 AM CDT Radha VORA LAB BLOOD ORDERABLES Final Re sult Performing Organization Address City/[facility]/ZIP Co de Phone Number [address] [place] [address] * (ABNORMAL) CBC with auto differential (12/04/2024 2:19 AM CDT) WBC 3.55(L) 3.80 - 9.90 K/cumm Hgb 6.4(C) 11.9 - 15.5 g/dL [facility] Comment:This result has been called to [id number] by [email or web address] on 12/04/2024 02:33:34, and has been read back. Hct 19.9(L) 35.6 - 45.5 % [facility] Plt 165 150 - 400 K/cumm [facility] MPV 8.7(L) 9.1 - 12.3 fL [facility] RBC 2.38(L) 3.90 - 5.20 M/cumm [facility] MCV 83.6 81.3 - 96.4 fL [facility] MCH 26.9(L) 27.1 - 33.3 pg [facility] MCHC 32.2(L) 32.3 - 35.7 g/dL [facility] RDW CV 14.6 11.1 - 14.9 % [facility] RDW SD 44.6 35.7 - 48.1 fL [facility] NRBC abs 0.00 0.00 - 0.01 K/cumm [facility] Blood 12/04/2024 2:19 AM CDT 12/04/2024 2:21 AM CDT us Radha VORA LAB BLOOD ORDERABLES Final Re sult [facility] [address] [facility] Department of Laboratories [place], [place] [id number] * (ABNORMAL) Comprehensive metabolic panel (12/04/2024 2:19 AM CDT) Pathologist [facility] Sodium 139 135 - 145 mmol/L Potassium, pl 4.5 3.3 - 4.9 mmol/L [facility] Chloride 107 97 - 110 mmol/L [facility] CO2 24 22 - 32 mmol/L [facility] Anion gap 8 2 - 15 mmol/L [facility] BUN 42(H) 6 - 25 mg/dL [facility] Creatinine 2.41(H) 0.60 - 1.10 mg/dL [facility] Glucose 88 70 - 199 mg/dL [facility] Comment: Interpretive Data Fasting glucose >/= 126 mg/dl is diagnostic for diabetes. Fasting is defined as no caloric intake for at least 8 hours. Fasting glucose between 100 mg/dl to 125 mg/dl is diagnostic of prediabetes. In a patient with classic symptoms of hyperglycemia or hyperglycemic crisis, a random glucose >/= 200 mg/dl is diagnostic for diabetes. In the absence of unequivocal hyperglycemia, results should be confirmed by repeat testing. The classification and Diagnosis of Diabetes Diabetes Care 2021; 46: S19-S40. Current interpretive data was last revised 2022. Calcium 7.9(L) 8.5 - 10.3 mg/dL [facility] Bilirubin, total <0.2 0.1 - 1.2 mg/dL [facility] Protein, pl 6.0(L) 6.5 - 8.5 g/dL [facility] Albumin 3.2(L) 3.5 - 5.0 g/dL [facility] Alk phos 144(H) 40 - 130 Units/L [facility] ALT 15 7 - 45 Units/L [facility] AST 14 10 - 45 Units/L [facility] Blood 12/04/2024 2:19 AM CDT 12/04/2024 2:21 AM CDT Radha VORA LAB BLOOD ORDERABLES Final Re sult Performing Organization Address City/[facility]/ZIP Co de Phone Number [address] [place] [address] * (ABNORMAL) Hemoglobin and hematocrit (12/03/2024 8:20 PM CDT) [facility] Hgb 7.1(L) 11.9 - 15.5 g/dL Hct 21.5(L) 35.6 - 45.5 % [facility] Blood 12/03/2024 8:20 PM CDT 12/03/2024 8:23 PM CDT Radha VORA LAB BLOOD ORDERABLES Final Re sult [address] [address] * ABO/Rh (12/03/2024 8:20 PM CDT) [facility] ABO/Rh A Positive Blood 12/03/2024 8:20 PM CDT 12/03/2024 8:23 PM CDT Narrative [facility] - 12/03/2024 8:58 PM CDT Has the patient had Daratumumab or Isatuximab in the past 6 months?->Unknown Radha VORA LAB BLOOD BANK TEST ORDERABLE S Final Result Performing Organization Address City/[facility]/ZIP Co de Phone Number [address] [place] [address] * (ABNORMAL) Vitamin D 25 hydroxy (12/03/2024 8:20 PM CDT) [facility] Vitamin D 25-OH 14.0(L) 30.0 - 80.0 ng/mL Blood 12/03/2024 8:20 PM CDT 12/03/2024 8:22 PM CDT Radha VORA LAB BLOOD ORDERABLES Final Re sult Performing Organization Address [facility] Co de Phone Number [address] [place] [address] * Crossmatch (12/03/2024 8:20 PM CDT) [facility] Crossmatch Compatible [facility] Unit number for crossmatch [id number] [facility] Blood 12/03/2024 8:20 PM CDT 12/03/2024 8:23 PM CDT Milo Guerra MD LAB BLOOD BANK TEST O RDERABLES Final Result Performing Organization Address [facility] Co de Phone Number [address] [place] [address] * Antibody screen (12/03/2024 8:20 PM CDT) [facility] Nedra, indirect, Gel Interpretation Negative ABSC Blood 12/03/2024 8:20 PM CDT 12/03/2024 8:23 PM CDT Narrative [facility] - 12/03/2024 8:58 PM CDT Has the patient had Daratumumab or Isatuximab in the past 6 months?->Unknown Radha VORA LAB BLOOD BANK TEST ORDERABLE S Final Result Performing Organization Address [facility]/ZIP Co de Phone Number [address] [place] [address] * (ABNORMAL) PTH (12/03/2024 8:20 PM CDT) Pathologist [facility] PTH 568(H) 15 - 65 pg/mL Blood 12/03/2024 8:20 PM CDT 12/03/2024 8:23 PM CDT Radha VORA LAB BLOOD ORDERABLES Final Re sult Performing Organization Address [facility] Co de Phone Number [address] [place] [address] * POCT glucose (12/03/2024 7:41 PM CDT) [facility] Glucose, POC 100 70 - 199 mg/dL Glucose comment 1 Will Repeat Test [facility] Glucose comment 2 RN/MD Notified [facility] Blood 12/03/2024 7:41 PM CDT 12/03/2024 7:41 PM CDT Milo Guerra MD LAB POCT ORDERABLES - DEVICE Final Result Performing Organization Address City/[facility] Co de Phone Number [address] [place] [address] * aPTT (12/03/2024 6:02 PM CDT) [facility] aPTT 30 22 - 37 sec Comment: Interpretive data aPTT test has not been evaluated for monitoring heparin therapy. The anti-Xa is the preferred test. Current interpretive data was last revised on 2019. Blood 12/03/2024 6:02 PM CDT 12/03/2024 6:04 PM CDT Cecilia VORA LAB BLOOD ORDERABLES Final Re sult Performing Organization Address [facility] de Phone Number ITALIA [address] [place] [address] * (ABNORMAL) Protime-INR (12/03/2024 6:02 PM CDT) PT 16.20(H) 12.00 - 14.60 sec INR 1.28(H) 0.90 - 1.20 [facility] Comment: Interpretive data Oral anticoagulant therapeutic ranges: Venous thromboembolism prophylaxis or treatment: 2.0-3.0 CARDIOLOGY Standard range: 2.0-3.0 High-intensity range: 2.5-3.5 Refer to indication-specific guidelines for appropriate target ranges for prosthetic heart valve replacement. Current interpretive data was last revised on 2019. Blood 12/03/2024 6:02 PM CDT 12/03/2024 6:04 PM CDT Cecilia Carr SC LAB BLOOD ORDERABLES Final Re sult Performing Organization Address [facility] Co de Phone Number PETRA[address] [place] [address] * XR Chest 1 Vw Portable (12/03/2024 3:33 PM CDT) Anatomical Region Laterality Modality Body, Chest N/A Computed Radiogr aphy 12/03/2024 4:10 PM CDT Narrative 12/03/2024 4:18 PM CDT EXAM DESCRIPTION: XR CHEST 1 VIEW REASON FOR STUDY: Shortness of Breath Pt c/o right flank pain and abd pain x3 wks getting worse with nausea. AOx4, pt unable to remove bra TECHNIQUE: Single radiographic view(s) of the chest. COMPARISON: 05/31/2024 FINDINGS: LUNGS: There are subtle diffuse pulmonary opacities which may represent mild pulmonary edema. No sizable pleural effusion or pneumothorax. HEART/MEDIASTINUM: There is unchanged enlargement of the cardiac silhouette. LINES/TUBES: Median sternotomy wires. BONES: No acute osseous abnormality. IMPRESSION: Subtle diffuse pulmonary opacities may represent mild pulmonary edema. Recommend clinical correlation. Unchanged enlargement of the cardiac silhouette. THIS IS AN ELECTRONICALLY VERIFIED FINAL REPORT 12/03/2024 4:18 PM - Electronically signed by Andrea Major M.D. AM T: Report ID: [id number] Reading Location: [id number] Procedure Note Andrea Major MD - 12/03/2024 EXAM DESCRIPTION: XR CHEST 1 VIEW REASON FOR STUDY: Shortness of Breath Pt c/o right flank pain and abd pain x3 wks getting worse with nausea.AOx4, pt unable to remove bra TECHNIQUE: Single radiographic view(s) of the chest. COMPARISON: 05/31/2024 FINDINGS: LUNGS: There are subtle diffuse pulmonary opacities which may represent mild pulmonary edema. No sizable pleural effusion orpneumothorax. HEART/MEDIASTINUM: There is unchanged enlargement of the cardiacsilhouette. LINES/TUBES: Median sternotomy wires. BONES: No acute osseous abnormality. IMPRESSION: Subtle diffuse pulmonary opacities may represent mildpulmonary edema. Recommend clinical correlation. Unchanged enlargement of the cardiac silhouette. THIS IS AN ELECTRONICALLY VERIFIED FINAL REPORT 12/03/2024 4:18 PM - Electronically signed by Andrea Major M.D. AM T: Report ID: [id number] Reading Location: [id number] Cecilia VORA IM XR PROCEDURES Final Resul t * (ABNORMAL) Troponin T high-sensitivity 2-hour (12/03/2024 3:10 PM CDT) Trop T hs 27(H) <=14 ng/L Comment: Interpretive Data For further hscTnT resources including the diagnostic algorithm and an aid in interpretation, copy and paste this link: [email or web address]/[email or web address] Current Interpretive Data last revised 2020. Trop T hs delta -3 ng/L [facility]IA HARRIS Trop T hs interp Insignificant ITALIA STEVEN Blood 12/03/2024 3:10 PM CDT 12/03/2024 3:13 PM CDT Herson Betancourt MD LAB BLOOD ORDERABLES Final Result [facility] HARRIS [address] [facility] [place] [address] * CT Abdomen Pelvis WO Contrast (12/03/2024 1:45 PM CDT) Anatomical Region Laterality Modality Body N/A Computed Tomogra phy 12/03/2024 1:49 PM CDT Narrative 12/03/2024 2:03 PM CDT EXAM DESCRIPTION: CT ABDOMEN PELVIS WO CONTRAST REASON FOR STUDY: Flank pain and abdominal pain c/o right flank pain and abd pain x3 wks getting worse with nausea. Hx: HTN, Hysterectomy TECHNIQUE: CT scan of the abdomen and pelvis performed without intravenous and without oral contrast using helical scanning technique. Reconstructed coronal and sagittal MPR images reviewed. All images stored on PACS. Automated exposure control was used as a dose optimization technique for this examination. COMPARISON: Prior CT 10/02/2024 and 07/20/2024 FINDINGS: The sensitivity for detection of visceral lesions is diminished without the use of intravenous contrast. LOWER CHEST: Limited view through the lung base demonstrates several small noncalcified pulmonary nodules. Largest measures 9 mm along the posterolateral aspect of the right lung base similar in appearance to the prior exam of 10/02/2024. This measured 7.2 mm on 07/20/2024. Follow-up CT of the chest can be obtained non emergently of the entire chest. There is prominent cardiomegaly. No pericardial effusion. No pleural effusion There is diffuse haziness of the soft tissues of the chest also of the abdomen and pelvis. Anasarca, nonspecific. LIVER: No focal lesion. There is surface nodularity which is nonspecific, but can be seen in hepatic parenchymal disease such as cirrhosis. No change from prior. GALLBLADDER: Gallbladder is absent. BILE DUCTS: No intrahepatic or extrahepatic ductal dilatation. SPLEEN: Normal size. No focal lesions. PANCREAS: No identified cystic or solid masses. No significant calcifications. No adjacent inflammation or peripancreatic fluid collections. Pancreatic duct not dilated. ADRENALS: Normal. KIDNEYS/URINARY TRACT: Limited evaluation of the kidneys with lack of IV contrast. Small low-density lesion extends exophytically along the left kidney too small to further characterize, but favors a cyst. No suspicious nephrolithiasis or hydronephrosis. GI: No evidence of bowel obstruction. No focal inflammatory change. There is some limitation given lack of oral IV contrast and haziness of the mesentery favoring anasarca. PERITONEUM: Diffuse haziness of the mesentery favoring anasarca, nonspecific. Trace ascites about the liver. RETROPERITONEUM: No definite adenopathy by size criteria. Occasional tiny lymph node typically reactive. REPRODUCTIVE: No suspicious adnexal mass. VASCULATURE: Atherosclerotic change abdominal aorta with no aneurysmal dilatation. Atherosclerotic change of distal branches. MUSCULOSKELETAL: No suspicious lytic or blastic lesion. Mild spondylosis lumbar spine. Grade 1 anterolisthesis L4 on L5. No pars defect. OTHER: No other abnormality. IMPRESSION: 1. No acute inflammatory change of the abdomen or pelvis. No bowel obstruction or inflammatory change of bowel. 2. No nephrolithiasis or hydronephrosis. 3. There is diffuse haziness of the soft tissues of the chest, abdomen and pelvis favoring anasarca, nonspecific. 4. There is surface nodularity of the liver which is nonspecific, but can be seen in hepatic parenchymal disease such as cirrhosis. No change from prior. 5. Trace ascites about the liver. 6. Limited view through the lung base demonstrates several small noncalcified pulmonary nodules. Largest measures 9 mm along the posterolateral aspect of the right lung base similar in appearance to the prior exam of 10/02/2024. This measured 7.2 mm on 07/20/2024. Follow-up CT of the entire chest can be obtained non emergently per Fleischner Society Guidelines. THIS IS AN ELECTRONICALLY VERIFIED FINAL REPORT 12/03/2024 2:03 PM - Electronically signed by Christian Patino M.D. MJ T: Report ID: [id number] Reading Location: [id number] Procedure Note Christian Patino MD - 12/03/2024 EXAM DESCRIPTION: CT ABDOMEN PELVIS WO CONTRAST REASON FOR STUDY: Flank pain and abdominal pain c/o right flank pain and abd pain x3 wks getting worse with nausea.Hx: HTN, Hysterectomy TECHNIQUE: CT scan of the abdomen and pelvis performed without intravenousand without oral contrast using helical scanning technique. Reconstructed coronal and sagittal MPR images reviewed. All images stored on PACS.Automated exposure control was used as a dose optimization technique for this examination. COMPARISON: Prior CT 10/02/2024 and 07/20/2024 FINDINGS: The sensitivity for detection of visceral lesions is diminished without the use of intravenous contrast. LOWER CHEST: Limited view through the lung base demonstrates severalsmall noncalcified pulmonary nodules. Largest measures 9 mm along the posterolateral aspect of the right lung base similar in appearance to the prior exam of 10/02/2024. This measured 7.2 mm on 07/20/2024. Follow-upCT of the chest can be obtained non emergently of the entire chest. There is prominent cardiomegaly. No pericardial effusion. No pleural effusion There is diffuse haziness of the soft tissues of the chest also of theabdomen and pelvis. Anasarca, nonspecific. LIVER: No focal lesion. There is surface nodularity which isnonspecific, but can be seen in hepatic parenchymal disease such as cirrhosis. Nochange from prior. GALLBLADDER: Gallbladder is absent. BILE DUCTS: No intrahepatic or extrahepatic ductal dilatation. SPLEEN: Normal size. No focal lesions. PANCREAS: No identified cystic or solid masses. No significant calcifications. No adjacent inflammation or peripancreatic fluidcollections. Pancreatic duct not dilated. ADRENALS: Normal. KIDNEYS/URINARY TRACT: Limited evaluation of the kidneys with lack of IV contrast. Small low-density lesion extends exophytically along the left kidney too small to further characterize, but favors a cyst. Nosuspicious nephrolithiasis or hydronephrosis. GI: No evidence of bowel obstruction. No focal inflammatory change.There is some limitation given lack of oral IV contrast and haziness of the mesentery favoring anasarca. PERITONEUM: Diffuse haziness of the mesentery favoring anasarca, nonspecific. Trace ascites about the liver. RETROPERITONEUM: No definite adenopathy by size criteria. Occasionaltiny lymph node typically reactive. REPRODUCTIVE: No suspicious adnexal mass. VASCULATURE: Atherosclerotic change abdominal aorta with no aneurysmal dilatation. Atherosclerotic change of distal branches. MUSCULOSKELETAL: No suspicious lytic or blastic lesion. Mildspondylosis lumbar spine. Grade 1 anterolisthesis L4 on L5. No pars defect. OTHER: No other abnormality. IMPRESSION: 1. No acute inflammatory change of the abdomen or pelvis. No bowel obstruction or inflammatory change of bowel. 2. No nephrolithiasis or hydronephrosis. 3. There is diffuse haziness of the soft tissues of the chest, abdomenand pelvis favoring anasarca, nonspecific. 4. There is surface nodularity of the liver which is nonspecific, butcan be seen in hepatic parenchymal disease such as cirrhosis. No change fromprior. 5. Trace ascites about the liver. 6. Limited view through the lung base demonstrates several small noncalcified pulmonary nodules. Largest measures 9 mm along theposterolateral aspect of the right lung base similar in appearance to the prior exam of 10/02/2024. This measured 7.2 mm on 07/20/2024. Follow-up CT of the entire chest can be obtained non emergently per Fleischner Society Guidelines. THIS IS AN ELECTRONICALLY VERIFIED FINAL REPORT 12/03/2024 2:03 PM - Electronically signed by Christian OLEA T: Report ID: [id number] Reading Location: [place] [address] PROCEDURES Jami l Result * ECG 12 lead (12/03/2024 12:54 PM CDT) Ventricular Rate EKG/Min 66 BPM [facility] Atrial Rate 64 BPM [facility] QRS-Interval (MSEC) 78 ms [facility] QT-Interval (MSEC) 424 ms [facility] QTc 444 ms [facility] R Belcher 3 degrees [facility] T Belcher 192 degrees [facility] Diagnosis Sinus rhythm Premature ventricular complexes Cannot rule out Anterior infarct (cited on or before 24-DEC-2016) T wave abnormality, consider lateral ischemia Abnormal ECG When compared with ECG of 02-OCT-2024 13:15, T wave inversion now evident in Lateral leads Confirmed by MERLINE HOOK M.D. ([id number]) on 12/03/2024 4:52:37 PM [facility] 12/03/2024 12:5 4 PM CDT 12/03/2024 4:52 PM CDT Milo Guerra MD ECG ORDERABLES Final Result [facility] * (ABNORMAL) Urinalysis reflex to microscopic and culture Urine (12/03/2024 12:50 PM CDT) Color, ur Yellow Yellow Clarity, ur Clear Clear [facility] Specific gravity, ur 1.010 1.003 - 1.030 [facility] pH, urine 6.5 [facility] Comment: Interpretive Data U rine pH is affected by diet, medications, systemic acid-base disturbances, and renal tubular function. pH may affect urinary stone formation. For example, urine pH below 6.0 may help reduce the tendency for calcium phosphate stones and pH greater than 6.0 may reduce the tendency for uric acid stone formation. Source: [facility] Current Interpretive Data was last revised on 2017 Protein, ur ql 2+(A) Negative [facility] Glucose, ur ql 2+(A) Negative [facility] Ketones, ur Negative Negative [facility] Bilirubin, ur Negative Negative [facility] Blood, ur Negative Negative [facility] Urobilinogen, ur <2.0 <2.0 mg/dL [facility] Nitrite, ur Negative Negative [facility] Leukocyte esterase, ur Negative Negative [facility] UA reflex comment Reflex to microscopic UA will be performed. [facility] Urine 12/03/2024 12:5 0 PM CDT 12/03/2024 12:56 PM CDT Linda VORA LAB MICROBIOLOGY - GEN ERAL ORDERABLES Final Result [facility] [address] [facility] [place] [address] * (ABNORMAL) Urinalysis, microscopic only (12/03/2024 12:50 PM CDT) [facility] WBC, ur 0-5 0 - 5 /HPF RBC, ur 0-2 0 - 2 /HPF [facility] Epithelial cells, squamous, ur 1-5 0 - 5 /HPF [facility] Bacteria, ur Trace(A) [facility] Yeast, ur Trace(A) [facility] Culture Reflex Comment Reflex conditions for urine culture (WBC >10) not met. [facility] Urine 12/03/2024 12:5 0 PM CDT 12/03/2024 12:56 PM CDT Linda VORA LAB URINE ORDERABLES F inal Result Performing Organization Address [facility]/ZIP Co de Phone Number [address] [place] [address] * (ABNORMAL) Troponin T high-sensitivity series (baseline, 2hr, 4hr, 6hr) (12/03/2024 12:42 PM CDT) [facility] Trop T hs 30(H) <=14 ng/L Comment: Interpretive Data For further hscTnT resources including the diagnostic algorithm and an aid in interpretation, copy and paste this link: [email or web address].[email or web address]/[email or web address] Current Interpretive Data last revised 2020. Blood 12/03/2024 12:4 2 PM CDT 12/03/2024 12:45 PM CDT us Herson Betancourt MD LAB BLOOD ORDERABLES Final Result Performing Organization Address [facility]/ZIP Co de Phone Number [address] [place] [address] * (ABNORMAL) eGFR (12/03/2024 12:42 PM CDT) [facility] eGFR 22(L) >=60 mL/min/1. 73 m2 Comment: Interpretive Data Reference Interval Normal >/= 90 mL/min/1.73m2 Mildly decreased* 60 - 89 mL/min/1.73m2 Mildly to moderately decreased 45 - 59 mL/min/1.73m2 Moderately to severely decreased 30 - 44 mL/min/1.73m2 Severely decreased 15 - 29 mL/min/1.73m2 Kidney Failure < 15 mL/min/1.73m2 *Relative to young adult level Estimated glomerular filtration rate is determined by the 2020 CKD-EPI equation recommended by the National Kidney Foundation (A Unifying Approach to GFR Estimation: Recommendations of the NKF-ASK Task Force on Reassessing the Inclusion of Race in Diagnosing Kidney Disease, JASN 2020). The CKD-EPI equation should not be used for patients with unstable renal function and has not been validated in children and those over 70. Current interpretive data was last reviewed 2021. Blood 12/03/2024 12:4 2 PM CDT 12/03/2024 12:45 PM CDT Linda VORA LAB BLOOD ORDERABLES F inal Result [place] [address] [facility] Department of Laboratories [place], [place] [id number] * (ABNORMAL) Differential, auto (12/03/2024 12:42 PM CDT) Pathologist [facility] Neutrophil abs 3.08 1.50 - 6.50 K/cumm Imm gran abs 0.01 0.00 - 0.10 K/cumm [facility] Lymphocyte abs 0.76(L) 0.80 - 3.30 K/cumm [facility] Monocyte abs 0.38 0.20 - 0.80 K/cumm [facility] Eosinophil abs 0.14 0.00 - 0.50 K/cumm [facility] Basophil abs 0.03 0.00 - 0.10 K/cumm [facility] Neutrophil pct 70.0 % [facility] Comment: Interpretive Data Percent cell count reference ranges are not reported, since discordance with absolute values may lead to misinterpretation of CBC data. Current Interpretive Data was last revised on 2017. Imm gran pct 0.2 % [facility] Comment: Interpretive Data Percent cell count reference ranges are not reported, since discordance with absolute values may lead to misinterpretation of CBC data. Current Interpretive Data was last revised on 2017. Lymphocyte pct 17.3 % [facility] Comment: Interpretive Data Percent cell count reference ranges are not reported, since discordance with absolute values may lead to misinterpretation of CBC data. Current Interpretive Data was last revised on 2017. Monocyte pct 8.6 % [facility] Comment: Interpretive Data Percent cell count reference ranges are not reported, since discordance with absolute values may lead to misinterpretation of CBC data. Current Interpretive Data was last revised on 2017. Eosinophil pct 3.2 % [facility] Comment: Interpretive Data Percent cell count reference ranges are not reported, since discordance with absolute values may lead to misinterpretation of CBC data. Current Interpretive Data was last revised on 2017. Basophil pct 0.7 % [facility] Comment: Interpretive Data Percent cell count reference ranges are not reported, since discordance with absolute values may lead to misinterpretation of CBC data. Current Interpretive Data was last revised on 2017. Blood 12/03/2024 12:4 2 PM CDT 12/03/2024 12:45 PM CDT Linda VORA LAB BLOOD ORDERABLES F inal Result [place] [address] [facility] [place] [address] * (ABNORMAL) Pro B-type natriuretic peptide (12/03/2024 12:42 PM CDT) NT-proBNP 9,027(H) <=300 pg/mL Comment: Interpretive Comments: A. Dyspnea in Acute Care Setting All Ages: < 300 pg/ml, acute heart failure unlikely. < 50 yrs: 300 - 450 pg/ml, further investigation warranted. > 450 pg/ml, acute heart failure likely. 50 - 74 yrs: 300 - 900 pg/ml, further investigation warranted. > 900 pg/ml, acute heart failure likely . > or = 75 yrs: 450 - 1800 pg/ml, further investigation warranted. > 1800 pg/ml, acute heart failure likely. B. Non-acute Setting < 75 yrs < 125 pg/ml, rules out heart failure. > or = 125 pg/ml, further investigation warranted. > or = 75 yrs < 450 pg/ml, rules out heart failure. > or = 450 pg/ml, further investigation warranted. - Knowledge of each individual patient's NT-proBNP range may be more useful than using similar cut-points for every patient. Please note that marked elevations in NT-proBNP levels may be observed in state other than Left Ventricular Congestive Failure, including: acute coronary syndromes, right heart strain/failure (including pulmonary embolism and cor pulmonale), critical illness, renal failure, as well as advanced age. - References: 1. Michael LOVE et.al. Eur Heart J. 2006:27:330-337. 2. Donny AVELAR, Markos ALBARADO. J. AM Schuyler Cardiol: Cardiovasc Imag. 2009;2: 216- 225. Interpretive Data Last Revised Date: 2017. Blood 12/03/2024 12:4 2 PM CDT 12/03/2024 12:45 PM CDT us Herson Betancourt MD LAB BLOOD ORDERABLES Final Result [facility] [address] [facility] [place] [address] * (ABNORMAL) CBC with auto differential (12/03/2024 12:42 PM CDT) Pathologist [facility] WBC 4.40 3.80 - 9.90 K/cumm Hgb 7.4(L) 11.9 - 15.5 g/dL [facility] Hct 22.5(L) 35.6 - 45.5 % [facility] Plt 206 150 - 400 K/cumm [facility] MPV 9.6 9.1 - 12.3 fL [facility] RBC 2.66(L) 3.90 - 5.20 M/cumm [facility] MCV 84.6 81.3 - 96.4 fL [facility] MCH 27.8 27.1 - 33.3 pg [facility] MCHC 32.9 32.3 - 35.7 g/dL [facility] RDW CV 14.4 11.1 - 14.9 % [facility] RDW SD 44.8 35.7 - 48.1 fL [facility] NRBC abs 0.00 0.00 - 0.01 K/cumm [facility] Blood Venous blood specimen / Unknown 12/03/2024 12:42 PM CDT 12/03/2024 12:45 PM CDT Linda VORA LAB BLOOD ORDERABLES F inal Result Performing Organization Address City/[facility] Co de Phone Number [address] [place] [address] * Lipase (12/03/2024 12:42 PM CDT) [facility] Lipase 30 10 - 99 Units/L Blood Venous blood specimen / Unknown 12/03/2024 12:42 PM CDT 12/03/2024 12:45 PM CDT Linda OVRA LAB BLOOD ORDERABLES F inal Result Performing Organization Address [facility] de Phone Number [address] [place] [address] * (ABNORMAL) Comprehensive metabolic panel (12/03/2024 12:42 PM CDT) [facility] Sodium 138 135 - 145 mmol/L Potassium, pl 4.5 3.3 - 4.9 mmol/L [facility] Comment:Hemolyzed; Potassium value may be falsely elevated by as much as 1.0 mmol/L. Suggest redraw and reanalysis. Chloride 105 97 - 110 mmol/L [facility] CO2 21(L) 22 - 32 mmol/L [facility] Anion gap 12 2 - 15 mmol/L [facility] BUN 39(H) 6 - 25 mg/dL [facility] Creatinine 2.31(H) 0.60 - 1.10 mg/dL [facility] Glucose 137 70 - 199 mg/dL [facility] Comment: Interpretive Data Fasting glucose >/= 126 mg/dl is diagnostic for diabetes. Fasting is defined as no caloric intake for at least 8 hours. Fasting glucose between 100 mg/dl to 125 mg/dl is diagnostic of prediabetes. In a patient with classic symptoms of hyperglycemia or hyperglycemic crisis, a random glucose >/= 200 mg/dl is diagnostic for diabetes. In the absence of unequivocal hyperglycemia, results should be confirmed by repeat testing. The classification and Diagnosis of Diabetes Diabetes Care 2021; 46: S19-S40. Current interpretive data was last revised 2022. Calcium 8.1(L) 8.5 - 10.3 mg/dL [facility] Bilirubin, total 0.2 0.1 - 1.2 mg/dL [facility] Protein, pl 6.9 6.5 - 8.5 g/dL [facility] Albumin 3.6 3.5 - 5.0 g/dL [facility] Alk phos 164(H) 40 - 130 Units/L [facility] ALT 18 7 - 45 Units/L [facility] AST 22 10 - 45 Units/L [facility] Blood Venous blood specimen / Unknown 12/03/2024 12:42 PM CDT 12/03/2024 12:45 PM CDT Linda VORA LAB BLOOD ORDERABLES F inal Result [place] [address] [facility] [place] [address] * (ABNORMAL) eGFR (11/29/2024 10:22 AM CDT) eGFR 23(L) >=60 mL/min/1. 73 m2 Comment: Interpretive Data Reference Interval Normal >/= 90 mL/min/1.73m2 Mildly decreased* 60 - 89 mL/min/1.73m2 Mildly to moderately decreased 45 - 59 mL/min/1.73m2 Moderately to severely decreased 30 - 44 mL/min/1.73m2 Severely decreased 15 - 29 mL/min/1.73m2 Kidney Failure < 15 mL/min/1.73m2 *Relative to young adult level Estimated glomerular filtration rate is determined by the 2020 CKD-EPI equation recommended by the National Kidney Foundation (A Unifying Approach to GFR Estimation: Recommendations of the NKF-ASK Task Force on Reassessing the Inclusion of Race in Diagnosing Kidney Disease, JASN 202). The CKD-EPI equation should not be used for patients with unstable renal function and has not been validated in children and those over 70. Current interpretive data was last reviewed 2021. Blood 11/29/2024 10:2 2 AM CDT 11/29/2024 10:36 AM CDT Lena VORA LAB BLOOD ORDERABLES Final Resul t [facility] [address] [facility] [place] [address] * Differential, auto (11/29/2024 10:22 AM CDT) Neutrophil abs 2.97 1.50 - 6.50 K/cumm Imm gran abs 0.01 0.00 - 0.10 K/cumm [facility] Lymphocyte abs 0.90 0.80 - 3.30 K/cumm [facility] Monocyte abs 0.34 0.20 - 0.80 K/cumm [facility] Eosinophil abs 0.12 0.00 - 0.50 K/cumm [facility] Basophil abs 0.02 0.00 - 0.10 K/cumm [facility] Neutrophil pct 68.1 % [facility] Comment: Interpretive Data Percent cell count reference ranges are not reported, since discordance with absolute values may lead to misinterpretation of CBC data. Current Interpretive Data was last revised on 2017. Imm gran pct 0.2 % [facility] Comment: Interpretive Data Percent cell count reference ranges are not reported, since discordance with absolute values may lead to misinterpretation of CBC data. Current Interpretive Data was last revised on 2017. Lymphocyte pct 20.6 % [facility] Comment: Interpretive Data Percent cell count reference ranges are not reported, since discordance with absolute values may lead to misinterpretation of CBC data. Current Interpretive Data was last revised on 2017. Monocyte pct 7.8 % [facility] Comment: Interpretive Data Percent cell count reference ranges are not reported, since discordance with absolute values may lead to misinterpretation of CBC data. Current Interpretive Data was last revised on 2017. Eosinophil pct 2.8 % [facility] Comment: Interpretive Data Percent cell count reference ranges are not reported, since discordance with absolute values may lead to misinterpretation of CBC data. Current Interpretive Data was last revised on 2017. Basophil pct 0.5 % [facility] Comment: Interpretive Data Percent cell count reference ranges are not reported, since discordance with absolute values may lead to misinterpretation of CBC data. Current Interpretive Data was last revised on 2017. Blood 11/29/2024 10:2 2 AM CDT 11/29/2024 10:22 AM CDT Lena VORA LAB BLOOD ORDERABLES Final Resul t [facility] [address] [facility] [place] [address] * (ABNORMAL) CBC with auto differential (11/29/2024 10:22 AM CDT) WBC 4.36 3.80 - 9.90 K/cumm Hgb 7.2(L) 11.9 - 15.5 g/dL [facility] Hct 21.9(L) 35.6 - 45.5 % [facility] Plt 215 150 - 400 K/cumm [facility] MPV 9.8 9.1 - 12.3 fL [facility] RBC 2.60(L) 3.90 - 5.20 M/cumm [facility] MCV 84.2 81.3 - 96.4 fL [facility] MCH 27.7 27.1 - 33.3 pg [facility] MCHC 32.9 32.3 - 35.7 g/dL [facility] RDW CV 14.5 11.1 - 14.9 % [facility] RDW SD 44.7 35.7 - 48.1 fL [facility] NRBC abs 0.00 0.00 - 0.01 K/cumm [facility] Blood 11/29/2024 10:2 2 AM CDT 11/29/2024 10:36 AM CDT Lena VORA LAB BLOOD ORDERABLES Final Resul t Performing Organization Address City/[facility]/ZIP Co de Phone Number [facility] [address] [facility] [place] [address] * (ABNORMAL) Comprehensive metabolic panel (11/29/2024 10:22 AM CDT) Sodium 139 135 - 145 mmol/L Potassium, pl 4.4 3.3 - 4.9 mmol/L [facility] Chloride 105 97 - 110 mmol/L [facility] CO2 23 22 - 32 mmol/L [facility] Anion gap 11 2 - 15 mmol/L [facility] BUN 48(H) 6 - 25 mg/dL [facility] Creatinine 2.28(H) 0.60 - 1.10 mg/dL [facility] Glucose 94 70 - 199 mg/dL [facility] Comment: Interpretive Data Fasting glucose >/= 126 mg/dl is diagnostic for diabetes. Fasting is defined as no caloric intake for at least 8 hours. Fasting glucose between 100 mg/dl to 125 mg/dl is diagnostic of prediabetes. In a patient with classic symptoms of hyperglycemia or hyperglycemic crisis, a random glucose >/= 200 mg/dl is diagnostic for diabetes. In the absence of unequivocal hyperglycemia, results should be confirmed by repeat testing. The classification and Diagnosis of Diabetes Diabetes Care 202; 46: S19-S40. Current interpretive data was last revised 2022. Calcium 8.5 8.5 - 10.3 mg/dL [facility] Bilirubin, total 0.2 0.1 - 1.2 mg/dL [facility] Protein, pl 7.2 6.5 - 8.5 g/dL [facility] Albumin 3.8 3.5 - 5.0 g/dL [facility] Alk phos 162(H) 40 - 130 Units/L [facility] ALT 17 7 - 45 Units/L [facility] AST 18 10 - 45 Units/L [facility] Blood 11/29/2024 10:2 2 AM CDT 11/29/2024 10:36 AM CDT Lena VORA LAB BLOOD ORDERABLES Final Resul t [address] [place] [address] * (ABNORMAL) eGFR (11/29/2024 10:21 AM CDT) eGFR 22(L) >=60 mL/min/1. 73 m2 Comment: Interpretive Data Reference Interval Normal >/= 90 mL/min/1.73m2 Mildly decreased* 60 - 89 mL/min/1.73m2 Mildly to moderately decreased 45 - 59 mL/min/1.73m2 Moderately to severely decreased 30 - 44 mL/min/1.73m2 Severely decreased 15 - 29 mL/min/1.73m2 Kidney Failure < 15 mL/min/1.73m2 *Relative to young adult level Estimated glomerular filtration rate is determined by the 2020 CKD-EPI equation recommended by the National Kidney Foundation (A Unifying Approach to GFR Estimation: Recommendations of the NKF-ASK Task Force on Reassessing the Inclusion of Race in Diagnosing Kidney Disease, JASN 2020). The CKD-EPI equation should not be used for patients with unstable renal function and has not been validated in children and those over 70. Current interpretive data was last reviewed 2021. Blood 11/29/2024 10:2 1 AM CDT 11/29/2024 10:36 AM CDT us Adonis Robledo MD LAB BLOOD ORDERABLES Final Resul t [address] [place] [address] * (ABNORMAL) Iron profile w/ IBC (11/29/2024 10:21 AM CDT) Iron 37 35 - 145 mcg/dL TIBC 160(L) 250 - 400 mcg/dL [facility] Transferrin saturation 23 20 - 50 % [facility] Blood 11/29/2024 10:2 1 AM CDT 11/29/2024 10:36 AM CDT us Adonis Robledo MD LAB BLOOD ORDERABLES Final Resul t Performing Organization Address [facility] Co de Phone Number [address] [address] * (ABNORMAL) Vitamin D 25 hydroxy (11/29/2024 10:21 AM CDT) Pathologist [facility] Vitamin D 25-OH 16.0(L) 30.0 - 80.0 ng/mL Blood 11/29/2024 10:2 1 AM CDT 11/29/2024 10:36 AM CDT Adonis Robledo MD LAB BLOOD ORDERABLES Final Resul t Performing Organization Address [facility] de Phone Number [address] [address] * (ABNORMAL) Transferrin (11/29/2024 10:21 AM CDT) [facility] Transferrin 133(L) 200 - 360 mg/dL Comment:Testing performed by : [facility], [address] [place] [address] Blood 11/29/2024 10:2 1 AM CDT 11/29/2024 12:57 PM CDT us Adonis Robledo MD LAB BLOOD ORDERABLES Final Resul t Performing Organization Address [facility] de Phone Number [address] [address] * Hemoglobin A1c (11/29/2024 10:21 AM CDT) Pathologist [facility] Hgb A1C 5.3 4.0 - 5.6 % Estimated Average Glucose 105 mg/dL [place] Comment: The ADA recommends reporting an estimated Average Glucose (eAG) with all Hemoglobin A1c results using the equation derived from a study of 507 normal and diabetic adults. Minority populations were underrepresented and children were not included. (Diabetes Care 31:8271-5871, 2008). The eAG is not equivalent to a fasting glucose. Blood 11/29/2024 10:2 1 AM CDT 11/29/2024 10:36 AM CDT us Adonis Robledo MD LAB BLOOD ORDERABLES Final Resul t Performing Organization Address City/[facility] Co de Phone Number [address] [place] [address] * (ABNORMAL) Ferritin (11/29/2024 10:21 AM CDT) Pathologist [facility] Ferritin 254(H) 13 - 150 ng/mL Blood 11/29/2024 10:2 1 AM CDT 11/29/2024 10:36 AM CDT us Adonis Robledo MD LAB BLOOD ORDERABLES Final Resul t Performing Organization Address [facility] de Phone Number [address] [address] * (ABNORMAL) Renal function panel (11/29/2024 10:21 AM CDT) [facility] Sodium 139 135 - 145 mmol/L Potassium, pl 4.5 3.3 - 4.9 mmol/L [facility] Chloride 105 97 - 110 mmol/L [facility] CO2 23 22 - 32 mmol/L [facility] Anion gap 11 2 - 15 mmol/L [facility] BUN 45(H) 6 - 25 mg/dL [facility] Creatinine 2.30(H) 0.60 - 1.10 mg/dL [facility] Glucose 91 70 - 199 mg/dL [facility] Comment: Interpretive Data Fasting glucose >/= 126 mg/dl is diagnostic for diabetes. Fasting is defined as no caloric intake for at least 8 hours. Fasting glucose between 100 mg/dl to 125 mg/dl is diagnostic of prediabetes. In a patient with classic symptoms of hyperglycemia or hyperglycemic crisis, a random glucose >/= 200 mg/dl is diagnostic for diabetes. In the absence of unequivocal hyperglycemia, results should be confirmed by repeat testing. The classification and Diagnosis of Diabetes Diabetes Care 2021; 46: S19-S40. Current interpretive data was last revised 2022. Calcium 8.4(L) 8.5 - 10.3 mg/dL [facility] Phosphorus, pl 4.1 2.3 - 4.5 mg/dL [facility] Albumin 3.6 3.5 - 5.0 g/dL [facility] Blood 11/29/2024 10:2 1 AM CDT 11/29/2024 10:36 AM CDT Adonis Robledo MD LAB BLOOD ORDERABLES Final Resul t Performing Organization Address [facility] de Phone Number [facility] [address] [facility] [place] [address] * (ABNORMAL) Urinalysis reflex to microscopic (11/29/2024 10:18 AM CDT) Color, ur Yellow Yellow Clarity, ur Clear Clear [facility] Specific gravity, ur 1.010 1.003 - 1.030 [facility] pH, urine 6.5 [facility] Comment: Interpretive Data U rine pH is affected by diet, medications, systemic acid-base disturbances, and renal tubular function. pH may affect urinary stone formation. For example, urine pH below 6.0 may help reduce the tendency for calcium phosphate stones and pH greater than 6.0 may reduce the tendency for uric acid stone formation. Source: [facility] Current Interpretive Data was last revised on 2017 Protein, ur ql 2+(A) Negative [facility] Glucose, ur ql Negative Negative [facility] Ketones, ur Negative Negative [facility] Bilirubin, ur Negative Negative [facility] Blood, ur Negative Negative [facility] Urobilinogen, ur <2.0 <2.0 mg/dL [facility] Nitrite, ur Negative Negative [facility] Leukocyte esterase, ur Negative Negative [facility] UA reflex comment Reflex to microscopic UA will be performed. [facility] Urine 11/29/2024 10:1 8 AM CDT 11/29/2024 10:38 AM CDT Adonis Robledo MD LAB URINE ORDERABLES Final Resul t Performing Organization Address [facility] Co de Phone Number [facility] [address] [place] [address] * (ABNORMAL) Protein / creatinine ratio, urine, random (11/29/2024 10:18 AM CDT) Protein, ur, quant 237.0 mg/dL Comment: Interpretive Data No reference range established. Current interpretive data was last revised 2018. Creatinine Ur 53.1 mg/dL [facility] Comment: Interpretive Data No reference range established. Current interpretive data was last revised 2018. Protein/creatinin e ratio 4,463.3(H ) 0.0 - 180.0 mg/g CR [facility] Urine 11/29/2024 10:1 8 AM CDT 11/29/2024 10:38 AM CDT Adonis Robledo MD LAB URINE ORDERABLES Final Resul t Performing Organization Address City/[facility] Co de Phone Number [address] [address] * Urinalysis, microscopic only (11/29/2024 10:18 AM CDT) WBC, ur 0-5 0 - 5 /HPF RBC, ur 0-2 0 - 2 /HPF [facility] Epithelial cells, squamous, ur 1-5 0 - 5 /HPF [facility] Culture Reflex Comment Reflex conditions for urine culture (WBC >10) not met. [facility] Urine 11/29/2024 10:1 8 AM CDT 11/29/2024 10:38 AM CDT Adonis Robledo MD LAB URINE ORDERABLES Final Resul t Performing Organization Address City/[facility]/ZIP Co de Phone Number [address] [address] * EGD (10/03/2024 12:54 PM CDT) Anatomical Region Laterality Modality Other Narrative Procedure Note Nas Avina MD - 10/03/2024 12:54 PM CDT [facility] GI ENDOSCOPY Patient Name: Erlinda Jean Procedure Date: 10/03/2024 12:54 PM Date of : 1955 Admit Type: Inpatient Age: 69 Gender: Female Attending MD: Nas Avina M.D. Room: [facility] ENDOSCOPY ROOM [facility] Note Status: Finalized Procedure: Upper GI endoscopy Indications: Abdominal pain, Melena Referring MD: Providers: Nas Avina M.D. Medicines: Monitored Anesthesia Care Complications: No immediate complications. Estimated blood loss:None. Estimated Blood Loss: Estimated blood loss: none. Procedure: Pre-Anesthesia Assessment: - Prior to the procedure, a History and Physicalwas performed, and patient medications and allergieswere reviewed. The patient is competent. The risks and benefits of the procedure and the sedation optionsand risks were discussed with the patient. Allquestions were answered and informed consent was obtained. Patient identification and proposed procedure were verified by the physician, the nurse and the powder press operator in the procedure room. Mental Status Examination: alert and oriented. AirwayExamination: normal oropharyngeal airway and neck mobility. Respiratory Examination: clear to auscultation. CV Examination: normal. Prophylactic Antibiotics: The patient does not require prophylactic antibiotics. Prior Anticoagulants: The patient has taken no anticoagulant or antiplatelet agents. ASA Grade Assessment: III - A patient with severe systemic disease. After reviewing the risks and benefits,the patient was deemed in satisfactory condition to undergo the procedure. The anesthesia plan was touse monitored anesthesia care (MAC). Immediately priorto administration of medications, the patient was re-assessed for adequacy to receive sedatives. The heart rate, respiratory rate, oxygen saturations, blood pressure, adequacy of pulmonary ventilation,and response to care were monitored throughout the procedure. The physical status of the patient was re-assessed after the procedure. The benefits, risks, and alternatives to theprocedure and sedation were discussed and informed consentwas obtained. The scope was passed under direct vision. The [id number] Upper endoscope was introduced through the mouth, and advanced to the second part of duodenum. The upper GI endoscopy was accomplished without difficulty. The patient tolerated the procedure well. Findings: The examined esophagus was normal. No esophageal varices. Diffuse inflammation characterized by erosions, erythema, andscattered hematin was found in the entire examined stomach. The examined duodenum was normal. Impression: - Normal esophagus. - Gastritis. - Normal examined duodenum. - No specimens collected. Recommendation: - [facility]. - Continue to monitor for signs of GI bleeding and trend hemoglobin. Transfuse for hemoglobin lessthan 7-8. - Treat with pantoprazole 40 mg PO BID for 8weeks. - Start carafate 1 gram slurry PO QID for 8weeks. - Follow up with outpatient GI for furtherevaluation of cirrhosis. - Avoid NSAIDs. - Check H pylori stool antigen and treat ifpositive. Nas Avina M.D. Nas Avina M.D. 10/03/2024 1:18:20 PM . Number of Addenda: 0 Note Initiated On: 10/03/2024 12:54 PM Recognized by the [employer] for promoting quality in endoscopy us Nas Avina MD ENDOSCOPY PROCEDURE S Final Result * US RUQ (10/03/2024 11:07 AM CDT) Anatomical Region Laterality Modality Abdomen N/A Ultrasound 10/03/2024 1:11 PM CDT Narrative 10/03/2024 1:18 PM CDT EXAM DESCRIPTION: US RUQ REASON FOR STUDY: concern for cirrhosis TECHNIQUE: Ultrasound of the right upper quadrant of the abdomen was performed with grayscale and color doppler. COMPARISON: CT from 10/02/2024 FINDINGS: PANCREAS: Visualized portions of the pancreas are within normal limits. Portions of the pancreatic body and tail are obscured due to bowel gas. LIVER: The liver may be slightly enlarged. The liver appears normal in echotexture and echogenicity. No focal lesion identified. No definite surface nodularity was seen. The main portal vein is patent with antegrade flow. GALLBLADDER: Not seen on this exam. BILIARY: There is no intrahepatic or extrahepatic biliary ductal dilatation. Common bile duct measures 0.5 cm in diameter. RIGHT KIDNEY: There is no mass or hydronephrosis. The echogenicity of the right kidney is greater than the liver. Cortical thickness is normal. A couple of very small benign cysts are seen. Measures 10 cm in length. OTHER: No other significant findings. IMPRESSION: The liver may be slightly enlarged. No definite surface nodularity was seen. Correlation with the patient's history and liver functions is recommended if cirrhosis is suspected. The echogenicity of the right kidney is greater than the liver. This can be seen with medical renal disease. THIS IS AN ELECTRONICALLY VERIFIED FINAL REPORT 10/03/2024 1:18 PM - Electronically signed by Manolo SEALS T: Report ID: [id number] Reading Location: [id number] Procedure Note Malik Person MD - 10/03/2024 EXAM DESCRIPTION: US RUQ REASON FOR STUDY: concern for cirrhosis TECHNIQUE: Ultrasound of the right upper quadrant of the abdomen wasperformed with grayscale and color doppler. COMPARISON: CT from 10/02/2024 FINDINGS: PANCREAS: Visualized portions of the pancreas are withinnormal limits. Portions of the pancreatic body and tail are obscured due to bowel gas. LIVER: The liver may be slightly enlarged. The liver appears normal in echotexture and echogenicity. No focal lesion identified. No definitesurface nodularity was seen. The main portal vein is patent with antegrade flow. GALLBLADDER: Not seen on this exam. BILIARY: There is no intrahepatic or extrahepatic biliary ductaldilatation. Common bile duct measures 0.5 cm in diameter. RIGHT KIDNEY: There is no mass or hydronephrosis. The echogenicity ofthe right kidney is greater than the liver. Cortical thickness is normal. A couple of very small benign cysts are seen. Measures 10 cm in length. OTHER: No other significant findings. IMPRESSION: The liver may be slightly enlarged. No definite surface nodularity wasseen. Correlation with the patient's history and liver functions is recommendedif cirrhosis is suspected. The echogenicity of the right kidney is greater than the liver. This canbe seen with medical renal disease. THIS IS AN ELECTRONICALLY VERIFIED FINAL REPORT 10/03/2024 1:18 PM - Electronically signed by Manolo SEALS T: Report ID: [id number] Reading Location: [place] [address] Kavya Kent NP IM US PROCEDURES Final Result * (ABNORMAL) eGFR (10/03/2024 7:44 AM CDT) eGFR 30(L) >=60 mL/min/1. 73 m2 Comment: Interpretive Data Reference Interval Normal >/= 90 mL/min/1.73m2 Mildly decreased* 60 - 89 mL/min/1.73m2 Mildly to moderately decreased 45 - 59 mL/min/1.73m2 Moderately to severely decreased 30 - 44 mL/min/1.73m2 Severely decreased 15 - 29 mL/min/1.73m2 Kidney Failure < 15 mL/min/1.73m2 *Relative to young adult level Estimated glomerular filtration rate is determined by the 2020 CKD-EPI equation recommended by the National Kidney Foundation (A Unifying Approach to GFR Estimation: Recommendations of the NKF-ASK Task Force on Reassessing the Inclusion of Race in Diagnosing Kidney Disease, JASN 2020). The CKD-EPI equation should not be used for patients with unstable renal function and has not been validated in children and those over 70. Current interpretive data was last reviewed 2021. Blood 10/03/2024 7:44 AM CDT 10/03/2024 7:49 AM CDT Gloria Todd MD LAB BLOOD ORDERABLES Final R esult [facility] [address] [facility] [place] [address] * Differential, auto (10/03/2024 7:44 AM CDT) Pathologist [facility] Neutrophil abs 3.45 1.50 - 6.50 K/cumm Imm gran abs 0.01 0.00 - 0.10 K/cumm [facility] Lymphocyte abs 0.86 0.80 - 3.30 K/cumm [facility] Monocyte abs 0.41 0.20 - 0.80 K/cumm [facility] Eosinophil abs 0.16 0.00 - 0.50 K/cumm [facility] Basophil abs 0.02 0.00 - 0.10 K/cumm [facility] Neutrophil pct 70.2 % [facility] Comment: Interpretive Data Percent cell count reference ranges are not reported, since discordance with absolute values may lead to misinterpretation of CBC data. Current Interpretive Data was last revised on 2017. Imm gran pct 0.2 % [facility] Comment: Interpretive Data Percent cell count reference ranges are not reported, since discordance with absolute values may lead to misinterpretation of CBC data. Current Interpretive Data was last revised on 2017. Lymphocyte pct 17.5 % [facility] Comment: Interpretive Data Percent cell count reference ranges are not reported, since discordance with absolute values may lead to misinterpretation of CBC data. Current Interpretive Data was last revised on 2017. Monocyte pct 8.4 % [facility] Comment: Interpretive Data Percent cell count reference ranges are not reported, since discordance with absolute values may lead to misinterpretation of CBC data. Current Interpretive Data was last revised on 2017. Eosinophil pct 3.3 % [facility] Comment: Interpretive Data Percent cell count reference ranges are not reported, since discordance with absolute values may lead to misinterpretation of CBC data. Current Interpretive Data was last revised on 2017. Basophil pct 0.4 % [facility] Comment: Interpretive Data Percent cell count reference ranges are not reported, since discordance with absolute values may lead to misinterpretation of CBC data. Current Interpretive Data was last revised on 2017. Blood 10/03/2024 7:44 AM CDT 10/03/2024 7:49 AM CDT us Gloria Todd MD LAB BLOOD ORDERABLES Final R esult [facility] [address] [facility] Department of Laboratories [place], [place] [id number] * (ABNORMAL) CBC with auto differential (10/03/2024 7:44 AM CDT) WBC 4.91 3.80 - 9.90 K/cumm Hgb 8.6(L) 11.9 - 15.5 g/dL [facility] Hct 26.1(L) 35.6 - 45.5 % [facility] Plt 207 150 - 400 K/cumm [facility] MPV 9.0(L) 9.1 - 12.3 fL [facility] RBC 3.03(L) 3.90 - 5.20 M/cumm [facility] MCV 86.1 81.3 - 96.4 fL [facility] MCH 28.4 27.1 - 33.3 pg [facility] MCHC 33.0 32.3 - 35.7 g/dL [facility] RDW CV 15.0(H) 11.1 - 14.9 % [facility] RDW SD 47.6 35.7 - 48.1 fL [facility] NRBC abs 0.00 0.00 - 0.01 K/cumm [facility] Blood 10/03/2024 7:44 AM CDT 10/03/2024 7:49 AM CDT us Gloria Todd MD LAB BLOOD ORDERABLES Final R esult Performing Organization Address City/[facility]/ZIP Co de Phone Number [place] [facility] [place] [address] * (ABNORMAL) Magnesium (10/03/2024 7:44 AM CDT) [facility] Magnesium 2.7(H) 1.4 - 2.5 mg/dL Blood 10/03/2024 7:44 AM CDT 10/03/2024 7:49 AM CDT Gloria Todd MD LAB BLOOD ORDERABLES Final R [facility] Performing Organization Address City/[facility] Co de Phone Number [place] [address] [place] [address] * (ABNORMAL) Comprehensive metabolic panel (10/03/2024 7:44 AM CDT) [facility] Sodium 139 135 - 145 mmol/L Potassium, pl 4.5 3.3 - 4.9 mmol/L [facility] Chloride 110 97 - 110 mmol/L [facility] CO2 19(L) 22 - 32 mmol/L [facility] Anion gap 10 2 - 15 mmol/L [facility] BUN 30(H) 6 - 25 mg/dL [facility] Creatinine 1.81(H) 0.60 - 1.10 mg/dL [facility] Glucose 86 70 - 199 mg/dL [facility] Comment: Interpretive Data Fasting glucose >/= 126 mg/dl is diagnostic for diabetes. Fasting is defined as no caloric intake for at least 8 hours. Fasting glucose between 100 mg/dl to 125 mg/dl is diagnostic of prediabetes. In a patient with classic symptoms of hyperglycemia or hyperglycemic crisis, a random glucose >/= 200 mg/dl is diagnostic for diabetes. In the absence of unequivocal hyperglycemia, results should be confirmed by repeat testing. The classification and Diagnosis of Diabetes Diabetes Care 202; 46: S19-S40. Current interpretive data was last revised 2022. Calcium 8.3(L) 8.5 - 10.3 mg/dL [facility] Bilirubin, total 0.3 0.1 - 1.2 mg/dL [facility] Protein, pl 6.5 6.5 - 8.5 g/dL [facility] Albumin 3.4(L) 3.5 - 5.0 g/dL [facility] Alk phos 158(H) 40 - 130 Units/L [facility] ALT 20 7 - 45 Units/L [facility] AST 18 10 - 45 Units/L [facility] Blood 10/03/2024 7:44 AM CDT 10/03/2024 7:49 AM CDT Gloria Todd MD LAB BLOOD ORDERABLES Final R esult Performing Organization Address [facility] Co de Phone Number [address] [place] [address] * Transfuse RBC (10/02/2024 11:58 PM CDT) Blood Víctor Jamison MD BLOOD TRANSFUSION ORDER SARAH Edited Result - Final Performing Organization Address [facility] Co de Phone Number [address] [place] [address] * Prepare RBC: 1 Units (10/02/2024 8:03 PM CDT) [facility] Units requested 1 Units requested Ready [facility] Unit Number [id number] Product code [id number] [facility] Blood Expiration Date [id number] [facility] Product Blood Type (for scanning) 6200 [facility] Product Blood Type APOS [facility] Dispense Status DISPENSED [facility] Blood 10/02/2024 8:03 PM CDT 10/02/2024 8:03 PM CDT Víctor Jamison MD BLOOD BANK PRODUCT ORDE RABLES Final Result Performing Organization Address [facility] Co de Phone Number [address] [place] [address] * (ABNORMAL) Hemoglobin and hematocrit (10/02/2024 7:54 PM CDT) Hgb 6.9(L) 11.9 - 15.5 g/dL Hct 20.7(L) 35.6 - 45.5 % [place] [facility] Blood 10/02/2024 7:54 PM CDT 10/02/2024 7:56 PM CDT us Víctor Jamison MD LAB BLOOD ORDERABLES Fi nal Result ITALIA HARRIS [address] [facility] [place] [address] * CT Abdomen Pelvis WO Contrast (10/02/2024 6:26 PM CDT) Anatomical Region Laterality Modality Body N/A Computed Tomogra phy 10/02/2024 6:37 PM CDT Narrative 10/02/2024 7:09 PM CDT EXAM DESCRIPTION: CT ABDOMEN PELVIS WO CONTRAST REASON FOR STUDY: other, left cva ttp, flank pain, new onset leg swelling Pt states to having dark stools for the last 3 days. Pt states to having epigastric pain that radiates into the back for the last week. Pt admits to taking and iron supplement. TECHNIQUE: CT scan of the abdomen and pelvis performed without intravenous and without oral contrast using helical scanning technique. Reconstructed coronal and sagittal MPR images reviewed. All images stored on PACS. Automated exposure control was used as a dose optimization technique for this examination. COMPARISON: 07/20/2024 , 11/18/2015 FINDINGS: The sensitivity for detection of visceral lesions is diminished without the use of intravenous contrast. LOWER CHEST: Please note that evaluation of the lung parenchyma is somewhat degraded due to respiratory motion artifact limiting evaluation. There are several noncalcified solid pulmonary nodules some of which that were imaged on prior examination 07/20/2024 have increased in size with the largest measuring up to 11 mm in the posterior right upper lobe at slice position 59 on the axial images at slice position 101 on sagittal images . Moderate cardiomegaly. Coronary artery atherosclerotic calcifications are present. Small bilateral pleural effusions. Scattered subsegmental atelectasis in both lungs. Small hiatal hernia. LIVER: Normal size. No identified cystic or solid masses. Subtle hepatic surface nodularity which can be seen with early hepatic cirrhosis/chronic liver disease/hepatic fibrosis. GALLBLADDER: The gallbladder is absent. BILE DUCTS: No intrahepatic or extrahepatic ductal dilatation. SPLEEN: Normal size. No focal lesions. PANCREAS: No identified cystic or solid masses. No significant calcifications. No adjacent inflammation or peripancreatic fluid collections. Pancreatic duct not dilated. ADRENALS: Normal. KIDNEYS/URINARY TRACT: Hypoattenuating bilateral renal lesions are too small to characterize on this noncontrast CT examination and have not substantially changed and may reflect cysts. No stones. No hydronephrosis or hydroureter. Urinary bladder is unremarkable. GI: Small hiatal hernia. The stomach is otherwise unremarkable. The small bowel and colon normal in course and caliber with no evidence of obstruction inflammation. No CT evidence of acute appendicitis. PERITONEUM: No free air. Trace volume ascites. No lymphadenopathy. RETROPERITONEUM: No mass or adenopathy. REPRODUCTIVE: No significant abnormality. VASCULATURE: No abdominal aortic aneurysm. Arterial calcifications of the abdominal aorta and its branches. MUSCULOSKELETAL: No acute fractures or aggressive osseous lesions. Median sternotomy wires are incompletely imaged. OTHER: Mild body wall edema. IMPRESSION: 1. No discrete CT findings to explain patient's flank/abdominal pain. No calculi in the urinary tract. No hydronephrosis or hydroureter. 2. Subtle hepatic surface nodularity which can be seen with early hepatic cirrhosis/chronic liver disease/hepatic fibrosis. 3. Moderate cardiomegaly. 4. Several noncalcified solid pulmonary nodules some of which that were imaged on prior examination 07/20/2024 have increased in size with the largest measuring up to [address] on nonemergent basis is suggested for further evaluation. THIS IS AN ELECTRONICALLY VERIFIED FINAL REPORT 10/02/2024 7:09 PM - Electronically signed by Humera Puckett M.D. AT T: Report ID: [id number] Reading Location: [id number] Procedure Note Humera Puckett MD - 10/02/2024 EXAM DESCRIPTION: CT ABDOMEN PELVIS WO CONTRAST REASON FOR STUDY: other, left cva ttp, flank pain, new onset legswelling Pt states to having dark stools for the last 3 days. Pt states tohaving epigastric pain that radiates into the back for the last week. Ptadmits to taking and iron supplement. TECHNIQUE: CT scan of the abdomen and pelvis performed without intravenousand without oral contrast using helical scanning technique. Reconstructed coronal and sagittal MPR images reviewed. All images stored on PACS.Automated exposure control was used as a dose optimization technique for this examination. COMPARISON: 07/20/2024 , 11/18/2015 FINDINGS: The sensitivity for detection of visceral lesions is diminished without the use of intravenous contrast. LOWER CHEST: Please note that evaluation of the lung parenchyma issomewhat degraded due to respiratory motion artifact limiting evaluation. Thereare several noncalcified solid pulmonary nodules some of which that wereimaged on prior examination 07/20/2024 have increased in size with the largest measuring up to 11 mm in the posterior right upper lobe at slice [id number] on the axial images at slice position 101 on sagittal images . Moderate cardiomegaly. Coronary artery atherosclerotic calcifications are present. Small bilateral pleural effusions. Scattered subsegmental atelectasis inboth lungs. Small hiatal hernia. LIVER: Normal size. No identified cystic or solid masses. Subtlehepatic surface nodularity which can be seen with early hepatic cirrhosis/chronic liver disease/hepatic fibrosis. GALLBLADDER: The gallbladder is absent. BILE DUCTS: No intrahepatic or extrahepatic ductal dilatation. SPLEEN: Normal size. No focal lesions. PANCREAS: No identified cystic or solid masses. No significant calcifications. No adjacent inflammation or peripancreatic fluidcollections. Pancreatic duct not dilated. ADRENALS: Normal. KIDNEYS/URINARY TRACT: Hypoattenuating bilateral renal lesions are toosmall to characterize on this noncontrast CT examination and have notsubstantially changed and may reflect cysts. No stones. No hydronephrosis orhydroureter. Urinary bladder is unremarkable. GI: Small hiatal hernia. The stomach is otherwise unremarkable. Thesmall bowel and colon normal in course and caliber with no evidence ofobstruction inflammation. No CT evidence of acute appendicitis. PERITONEUM: No free air. Trace volume ascites. No lymphadenopathy. RETROPERITONEUM: No mass or adenopathy. REPRODUCTIVE: No significant abnormality. VASCULATURE: No abdominal aortic aneurysm. Arterial calcifications ofthe abdominal aorta and its branches. MUSCULOSKELETAL: No acute fractures or aggressive osseous lesions.Median sternotomy wires are incompletely imaged. OTHER: Mild body wall edema. IMPRESSION: 1. No discrete CT findings to explain patient'sflank/abdominal pain. No calculi in the urinary tract. No hydronephrosis or hydroureter. 2. Subtle hepatic surface nodularity which can be seen with early hepatic cirrhosis/chronic liver disease/hepatic fibrosis. 3. Moderate cardiomegaly. 4. Several noncalcified solid pulmonary nodules some of which that were imaged on prior examination 07/20/2024 have increased in size with thelargest measuring up to [address] on nonemergent basis issuggested for further evaluation. THIS IS AN ELECTRONICALLY VERIFIED FINAL REPORT 10/02/2024 7:09 PM - Electronically signed by Humera Puckett M.D. AT T: Report ID: [id number] Reading Location: [place] [address] Víctor Jamison MD IMG CT PROCEDURES Final Result * Sepsis Lactate w/ Reflex (10/02/2024 5:52 PM CDT) Sepsis Lactate 0.8 0.7 - 2.0 mmol/L Blood 10/02/2024 5:52 PM CDT 10/02/2024 5:55 PM CDT Víctor Jamison MD LAB BLOOD ORDERABLES Fi nal Result ITALIA [address] [facility] [place] [address] * (ABNORMAL) Troponin T high-sensitivity 2-hour (10/02/2024 3:11 PM CDT) Trop T hs 21(H) <=14 ng/L Comment: Interpretive Data For further hscTnT resources including the diagnostic algorithm and an aid in interpretation, copy and paste this link: https://nrl.testcatalog.org/show/hsTrop Current Interpretive Data last revised 2020. Trop T hs delta -1 ng/L ITALIA Trop T hs interp Insignificant ITALIA Blood 10/02/2024 3:11 PM CDT 10/02/2024 3:14 PM CDT Nella VORA LAB BLOOD ORDERABLES Final Result Performing Organization Address [facility]/ZIP Co de Phone Number [address] [address] * (ABNORMAL) Iron profile w/ IBC (10/02/2024 3:11 PM CDT) [facility] Iron 25(L) 35 - 145 mcg/dL TIBC 157(L) 250 - 400 mcg/dL [facility] Transferrin saturation 16(L) 20 - 50 % [facility] Blood 10/02/2024 3:11 PM CDT 10/02/2024 3:14 PM CDT Gloria Todd MD LAB BLOOD ORDERABLES Final R esult Performing Organization Address [facility] Co de Phone Number [address] [address] * Lactate dehydrogenase (LD) (10/02/2024 3:11 PM CDT) [facility] Lactate dehydrogenase (LDH) 204 100 - 250 Units/L Comment:Hemolyzed; result ma y be falsely elevated Blood 10/02/2024 3:11 PM CDT 10/02/2024 3:14 PM CDT Gloria Todd MD LAB BLOOD ORDERABLES Final R esult Performing Organization Address [facility] Co de Phone Number [address] [address] * Vitamin B12 (10/02/2024 3:11 PM CDT) [facility] Vitamin B12 522 230 - 1,250 pg/mL Blood 10/02/2024 3:11 PM CDT 10/02/2024 3:14 PM CDT Gloria Todd MD LAB BLOOD ORDERABLES Final R esult Performing Organization Address City/[facility]/ZIP Co de Phone Number [facility] [address] [place] [address] * ABO / Rh Confirmation Testing (10/02/2024 2:07 PM CDT) ABO/Rh Confirmation A Positive B Blood 10/02/2024 2:07 PM CDT 10/02/2024 2:09 PM CDT Nella VORA LAB BLOOD ORDERABLES Final Result Performing Organization Address [facility] de Phone Number [address] [address] B * (ABNORMAL) Urinalysis reflex to microscopic and culture Urine (10/02/2024 1:27 PM CDT) Color, ur Yellow Yellow Clarity, ur Clear Clear [facility] Specific gravity, ur 1.011 1.003 - 1.030 [facility] pH, urine 6.5 [facility] Comment: Interpretive Data U rine pH is affected by diet, medications, systemic acid-base disturbances, and renal tubular function. pH may affect urinary stone formation. For example, urine pH below 6.0 may help reduce the tendency for calcium phosphate stones and pH greater than 6.0 may reduce the tendency for uric acid stone formation. Source: [facility] Current Interpretive Data was last revised on 2017 Protein, ur ql 2+(A) Negative [facility] Glucose, ur ql 3+(A) Negative [facility] Ketones, ur Negative Negative [facility] Bilirubin, ur Negative Negative [facility] Blood, ur Negative Negative [facility] Urobilinogen, ur <2.0 <2.0 mg/dL [facility] Nitrite, ur Negative Negative [facility] Leukocyte esterase, ur Negative Negative [facility] UA reflex comment Reflex to microscopic UA will be performed. [facility] Urine 10/02/2024 1:27 PM CDT 10/02/2024 1:32 PM CDT Result [facility] Víctor Jamison MD LAB MICROBIOLOGY - GENE RAL ORDERABLES Final Result Performing Organization Address [facility] Co de Phone Number [address] [address] * Urinalysis, microscopic only (10/02/2024 1:27 PM CDT) WBC, ur 0-5 0 - 5 /HPF RBC, ur 0-2 0 - 2 /HPF [facility] Epithelial cells, squamous, ur 1-5 0 - 5 /HPF [facility] Culture Reflex Comment Reflex conditions for urine culture (WBC >10) not met. [facility] Urine 10/02/2024 1:27 PM CDT 10/02/2024 1:32 PM CDT Result [facility] Víctor Jamison MD LAB URINE ORDERABLES Fi nal Result Performing Organization Address [facility] Co de Phone Number [address] [address] * (ABNORMAL) Troponin T high-sensitivity series (baseline, 2hr, 4hr, 6hr) (10/02/2024 1:21 PM CDT) Trop T hs 22(H) <=14 ng/L Comment: Interpretive Data For further hscTnT resources including the diagnostic algorithm and an aid in interpretation, copy and paste this link: https://nrl.testcatalog.org/show/hsTrop Current Interpretive Data last revised 2020. Blood 10/02/2024 1:21 PM CDT 10/02/2024 1:25 PM CDT Result [facility] Víctor Jamison MD LAB BLOOD ORDERABLES Fi nal Result Performing Organization Address [facility] Co de Phone Number [address] [address] * (ABNORMAL) eGFR (10/02/2024 1:21 PM CDT) [facility] eGFR 27(L) >=60 mL/min/1. 73 m2 Comment: Interpretive Data Reference Interval Normal >/= 90 mL/min/1.73m2 Mildly decreased* 60 - 89 mL/min/1.73m2 Mildly to moderately decreased 45 - 59 mL/min/1.73m2 Moderately to severely decreased 30 - 44 mL/min/1.73m2 Severely decreased 15 - 29 mL/min/1.73m2 Kidney Failure < 15 mL/min/1.73m2 *Relative to young adult level Estimated glomerular filtration rate is determined by the 2020 CKD-EPI equation recommended by the National Kidney Foundation (A Unifying Approach to GFR Estimation: Recommendations of the NKF-ASK Task Force on Reassessing the Inclusion of Race in Diagnosing Kidney Disease, JASN 2020). The CKD-EPI equation should not be used for patients with unstable renal function and has not been validated in children and those over 70. Current interpretive data was last reviewed 2021. Blood 10/02/2024 1:21 PM CDT 10/02/2024 1:25 PM CDT us Víctor Jamison MD LAB BLOOD ORDERABLES [facility] Result [facility] [address] [facility] Department of Laboratories [place], [place] [id number] * Differential, auto (10/02/2024 1:21 PM CDT) [facility] Neutrophil abs 3.17 1.50 - 6.50 K/cumm Imm gran abs 0.01 0.00 - 0.10 K/cumm [facility] Lymphocyte abs 0.89 0.80 - 3.30 K/cumm [facility] Monocyte abs 0.37 0.20 - 0.80 K/cumm [facility] Eosinophil abs 0.19 0.00 - 0.50 K/cumm [facility] Basophil abs 0.03 0.00 - 0.10 K/cumm [facility] Neutrophil pct 68.1 % [facility] Comment: Interpretive Data Percent cell count reference ranges are not reported, since discordance with absolute values may lead to misinterpretation of CBC data. Current Interpretive Data was last revised on 2017. Imm gran pct 0.2 % [facility] Comment: Interpretive Data Percent cell count reference ranges are not reported, since discordance with absolute values may lead to misinterpretation of CBC data. Current Interpretive Data was last revised on 2017. Lymphocyte pct 19.1 % [facility] Comment: Interpretive Data Percent cell count reference ranges are not reported, since discordance with absolute values may lead to misinterpretation of CBC data. Current Interpretive Data was last revised on 2017. Monocyte pct 7.9 % [facility] Comment: Interpretive Data Percent cell count reference ranges are not reported, since discordance with absolute values may lead to misinterpretation of CBC data. Current Interpretive Data was last revised on 2017. Eosinophil pct 4.1 % [facility] Comment: Interpretive Data Percent cell count reference ranges are not reported, since discordance with absolute values may lead to misinterpretation of CBC data. Current Interpretive Data was last revised on 2017. Basophil pct 0.6 % [facility] Comment: Interpretive Data Percent cell count reference ranges are not reported, since discordance with absolute values may lead to misinterpretation of CBC data. Current Interpretive Data was last revised on 2017. Blood 10/02/2024 1:21 PM CDT 10/02/2024 1:25 PM CDT us Víctor Jamison MD LAB BLOOD ORDERABLES Fi nal Result [facility] [address] [facility] [place] [address] * (ABNORMAL) CBC with auto differential (10/02/2024 1:21 PM CDT) WBC 4.66 3.80 - 9.90 K/cumm Hgb 7.4(L) 11.9 - 15.5 g/dL [facility] Hct 23.4(L) 35.6 - 45.5 % [facility] Plt 220 150 - 400 K/cumm [facility] MPV 9.2 9.1 - 12.3 fL [facility] RBC 2.74(L) 3.90 - 5.20 M/cumm [facility] MCV 85.4 81.3 - 96.4 fL [facility] MCH 27.0(L) 27.1 - 33.3 pg [facility] MCHC 31.6(L) 32.3 - 35.7 g/dL [facility] RDW CV 15.2(H) 11.1 - 14.9 % [facility] RDW SD 47.7 35.7 - 48.1 fL [facility] NRBC abs 0.00 0.00 - 0.01 K/cumm [facility] Blood Venous blood specimen / Unknown 10/02/2024 1:21 PM CDT 10/02/2024 1:25 PM CDT Víctor Jamison MD LAB BLOOD ORDERABLES Fi nal Result Performing Organization Address City/[facility]/ZIP Co de Phone Number [address] [place] [address] * ABO/Rh (10/02/2024 1:21 PM CDT) ABO/Rh A Positive Blood 10/02/2024 1:21 PM CDT 10/02/2024 1:25 PM CDT Narrative [facility] - 10/02/2024 2:03 PM CDT Has the patient had Daratumumab or Isatuximab in the past 6 months?->Unknown Víctor Jamison MD LAB BLOOD BANK TEST ORD ERABLES Final Result [address] [place] [address] * Crossmatch (10/02/2024 1:21 PM CDT) Crossmatch Compatible [facility] Unit number for crossmatch [id number] [facility] Blood 10/02/2024 1:21 PM CDT 10/02/2024 1:25 PM CDT Víctor Jamison MD LAB BLOOD BANK TEST ORD ERABLES Final Result Performing Organization Address [facility] Co de Phone Number PETRA[address] [address] * Antibody screen (10/02/2024 1:21 PM CDT) [facility] Nedra, indirect, Gel Interpretation Negative ABSC Blood 10/02/2024 1:21 PM CDT 10/02/2024 1:25 PM CDT Narrative [facility] - 10/02/2024 2:03 PM CDT Has the patient had Daratumumab or Isatuximab in the past 6 months?->Unknown Víctor Jamison MD LAB BLOOD BANK TEST ORD ERABLES Final Result Performing Organization Address [facility] de Phone Number [address] [address] * Lipase (10/02/2024 1:21 PM CDT) [facility] Lipase 45 10 - 99 Units/L Blood Venous blood specimen / Unknown 10/02/2024 1:21 PM CDT 10/02/2024 1:25 PM CDT Result [facility] Víctor Jamison MD LAB BLOOD ORDERABLES Fi nal Result Performing Organization Address [facility] Co de Phone Number [address] [place] [address] * (ABNORMAL) Comprehensive metabolic panel (10/02/2024 1:21 PM CDT) [facility] Sodium 137 135 - 145 mmol/L Potassium, pl 4.9 3.3 - 4.9 mmol/L [facility] Chloride 109 97 - 110 mmol/L [facility] CO2 19(L) 22 - 32 mmol/L [facility] Anion gap 9 2 - 15 mmol/L [facility] BUN 34(H) 6 - 25 mg/dL [facility] Creatinine 1.95(H) 0.60 - 1.10 mg/dL [facility] Glucose 104 70 - 199 mg/dL [facility] Comment: Interpretive Data Fasting glucose >/= 126 mg/dl is diagnostic for diabetes. Fasting is defined as no caloric intake for at least 8 hours. Fasting glucose between 100 mg/dl to 125 mg/dl is diagnostic of prediabetes. In a patient with classic symptoms of hyperglycemia or hyperglycemic crisis, a random glucose >/= 200 mg/dl is diagnostic for diabetes. In the absence of unequivocal hyperglycemia, results should be confirmed by repeat testing. The classification and Diagnosis of Diabetes Diabetes Care 2021; 46: S19-S40. Current interpretive data was last revised 2022. Calcium 8.0(L) 8.5 - 10.3 mg/dL [facility] Bilirubin, total 0.2 0.1 - 1.2 mg/dL [facility] Protein, pl 7.2 6.5 - 8.5 g/dL [facility] Albumin 3.6 3.5 - 5.0 g/dL [facility] Alk phos 163(H) 40 - 130 Units/L [facility] ALT 27 7 - 45 Units/L [facility] AST 25 10 - 45 Units/L [facility] Blood 10/02/2024 1:21 PM CDT 10/02/2024 1:25 PM CDT Víctor Jamison MD LAB BLOOD ORDERABLES nal Result [facility] [address] [facility] [place] [address] * ECG 12 lead (10/02/2024 1:15 PM CDT) Ventricular Rate EKG/Min 61 BPM [facility] Atrial Rate 61 BPM [facility] ND-Interval (MSEC) 264 ms [facility] QRS-Interval (MSEC) 78 ms [facility] QT-Interval (MSEC) 416 ms [facility] QTc 418 ms [facility] R Belcher 41 degrees [facility] T Belcher -54 degrees [facility] Diagnosis Sinus rhythm with 1st degree A-V block 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 ([id number]) on 10/02/2024 7:57:19 PM [facility] 10/02/2024 1:15 PM CDT 10/02/2024 7:57 PM CDT us Víctor Jamison MD ECG ORDERABLES Final R esult [facility] [employer] [facility] * Lipid panel (03/29/2024 12:08 PM [employer]) Cholesterol 120 30 - 199 mg/dL Comment: Interpretive Data Ages < or = 19 years Acceptable: <170 mg/dL Borderline high: 170-199 mg/dL High: >or= 200 mg/dL Ages > or = 20 years Desirable: <200 mg/dL Borderline high: 200-239 mg/dL High: >or= 240 mg/dL Literature References: 1. Expert Panel on Integrated Guidelines for Cardiovascular Health and Risk Reduction in Children and Adolescents. Pediatrics 2011;128:S213 2. NCEP Expert Panel. Circulation 2004;110:227 Current Interpretive Data was last revised on 2017. Triglycerides 84 <=149 mg/dL ITALIA HARRIS Comment: Interpretive Data Ages < or = 9 years Acceptable: <75 mg/dL Borderline high: 75-99 mg/dL High: >or= 100 mg/dL Ages 10 to 20 years Acceptable: <90 mg/dL Borderline high: 90-129 mg/dL High: >or= 130 mg/dL Ages > or = 20 years Desirable: <150 mg/dL Borderline high: 150-199 mg/dL High: 200-499 mg/dL Very high: >or= 499 mg/dL Literature References: 1. Expert Panel on Integrated Guidelines for Cardiovascular Health and Risk Reduction in Children and Adolescents. Pediatrics 2011;128:S213 2. NCEP Expert Panel. Circulation 2004;110:227 Current Interpretive Data was last revised on 2017. HDL 48 >=40 mg/dL ITALIA Comment: Interpretive Data Ages < or = 19 years Acceptable: >45 mg/dL Borderline low: 40-45 mg/dL Low: <40 mg/dL Ages > or = 20 years Desirable: >or= 60 mg/dL Low: <40 mg/dL Literature References: 1. Expert Panel on Integrated Guidelines for Cardiovascular Health and Risk Reduction in Children and Adolescents. Pediatrics 2011;128:S213 2. NCEP Expert Panel. Circulation 2004;110:227 Current Interpretive Data was last revised on 2017. LDL, calculated 56 <=129 mg/dL [facility]IA Comment: Interpretive Data Ages < or = 19 years Acceptable: <110 mg/dL Borderline high: 110-129 mg/dL High: >or= 130 mg/dL Ages > or = 20 years Optimal: <100 mg/dL Near optimal: 100-129 mg/dL Borderline high: 130-159 mg/dL High: >160 mg/dL Calculated using the Clement LDL-C estimating equation. This equation was implemented on 2023. Prior to this date LDL-C was estimated using the Friedewald equation. Literature References: 1. Expert Panel on Integrated Guidelines for Cardiovascular Health and Risk Reduction in Children and Adolescents. Pediatrics 2011;128:S213 2. NCEP Expert Panel. Circulation 2004;110:227 3. Clement Chavarria al. EMILIANO Cardiol. 2019August 24;5(5):540-548. doi: [email or web address] Current Interpretive Data was last revised on 2023. Non-HDL Cholesterol 72 mg/dL ITALIA Comment: Interpretive Data Ages < or = 19 years Acceptable: <120 mg/dL Borderline high: 120-144 mg/dL High: >145 mg/dL Ages > or = 20 years When triglycerides are >200 mg/dL, Non-HDL cholesterol is a secondary target of therapy with treatment goals that are 30 mg/dL greater than the LDL cholesterol target. Literature References: 1. Expert Panel on Integrated Guidelines for Cardiovascular Health and Risk Reduction in Children and Adolescents. Pediatrics 2011;128:S213 2. NCEP Expert Panel. Circulation 2004;110:227 Current Interpretive Data was last revised on 2017. Chol/HDL ratio 2 ITALIA HARRIS Blood 03/29/2024 12:0 8 PM WARP TYING MACHINE TENDER 03/29/2024 12:21 PM WARP TYING MACHINE TENDER Reece Betts MD LAB BLOOD ORDERABLES Fi nal Result ITALIA HARRIS [address] [facility] [place] [address] * Screening Mammogram Bilateral W Pavan (09/03/2023 10:59 AM CDT) Anatomical Region Laterality Modality Breast Bilateral Mammography Impressions 09/03/2023 11:01 AM CDT BI-RADS ATLAS category (overall): 1 - Negative There is no mammographic evidence of malignancy. A 1 year screening mammogram is recommended. The patient has been or will be contacted. We recommend annual screening mammography for women at average risk of breast cancer beginning at age 40, based on guidelines of the [employer] (ACR Practice Parameter for the Performance of Screening and Diagnostic Mammography) and [employer]. For women with and elevated risk of breast cancer, please refer to the ACR Practice Parameter for specific screening recommendations. The patient will be entered into a reminder system with a target due date of 1 year for her next screening exam. Narrative 09/03/2023 11:01 AM CDT Screening Mammogram Bilateral W Pavan: 09/03/23 The study was acquired using full field digital technology and interpreted from soft copy. 2D digital mammographic views, as well as 3D digital tomosynthesis were performed in the CC and MLO projections. CLINICAL: Screening mammogram, encounter for. No relevant medical history has been documented for this patient. No known family history of breast cancer. COMPARISONS: 07/09/2022 Diagnostic Mammogram Right W Pavan 06/16/2022 Screening Mammogram Bilateral W Pavan 12/23/2017 Breast Imaging Screening Outside Reference BREAST TISSUE: The breasts are heterogeneously dense, which may obscure small masses. FINDINGS: There is no new suspicious finding in either breast on mammogram. us Self Screening Mammogram IMG MAMMO PROCEDURES Fi nal Result from Last 3 Months or Most Recently Relevant to Health Maintenance Insurance Advance Directives For more information, please contact: [phone] * Full Code (Latest Code Status on File) Date Activated Date Inactivated Comments 12/03/2024 7:44 PM 12/06/2024 9:34 PM * Full Code Date Activated Date Inactivated Comments 10/03/2024 12:28 PM 10/03/2024 10:07 PM * Full Code Date Activated Date Inactivated Comments 10/02/2024 9:12 PM 10/03/2024 12:28 PM * Full Code Date Activated Date Inactivated Comments 05/28/2024 1:47 AM 05/31/2024 7:33 PM * Full Code Date Activated Date Inactivated Comments 04/02/2023 10:46 AM 04/04/2023 12:44 AM Care Teams Yarn Wrapper Relationship Specialty Start Date End Date Lena Negro PA PCP - General [facility] 08/31/22 Ernesto Awan MD Medical Oncologist/Railways Assistant Hematology and Oncology 04/28/19 Robert Thurman II, MD Referring Physician Family Medicine 05/03/19
--- NOTE | 2024-12-30 15:28 | WPDNEUROLOGY ---
Neurology EEG Report General Information Date of Study: 12/29/24 TEST EEG DIAGNOSIS History of seizure disorder with no previous EEG. CONDITION OF RECORDING Awake, drowsy and asleep. EEG NUMBER [id number] CLINICAL HISTORY 69 years old female going through an EEG to potentially stop seizure medication. Patient daughter was better historian. She stated he has not had a seizure since 2012 after her daughter's patient's daughter states that during her episodes there is no aura. Patient will start to stare off, her tongue will fall out of her mouth, and she will start drooling. Afterwards, she has no memory of the episode but does not seem confused or tired. EEG DESCRIPTION Basic resting occipital frequency consists of low-voltage to medium voltage 8 to 10 hertz per 2nd well-organized alpha activity waxing and waning during drowsiness. Intermittent low-voltage to medium voltage 6 to 7 hertz per 2nd theta activity is noted during drowsiness. Bilateral symmetrical sleep activity with symmetrical sleep spindles noted during sleep. Photic stimulation produced normal drive. Hyperventilation not done. Non paroxysmal. Nonfocal. Nonlateralizing. IMPRESSION No significant abnormalities noted. Clinical correlation recommended as a normal EEG does not rule out the possibility of seizure.
== END 2024-12-29 09:28 | disposition home or self-care (01) ==
PROVIDERS: Visit Provider Psychiatry & Neurology Neurology
DX: Z87.828 Personal history of other (healed) physical injury and trauma (principal)
CPT/HCPCS: 95816